=== PATIENT | male | born 1990 | race Caucasian/White ===

== ENCOUNTER 2019-12-08 23:17 | Emergency (ER) | payer OTHER ==
[~2019-12-08] VITALS: Ht 200.7 cm; Wt 124.7 kg
--- OUTSIDE RECORDS SUMMARY | ~2019-12-08 | XMS | Encounter Summary ---
Demographics + + + | Address | [address] | | | [place] [address] | + + + | Home Phone | | + + + | Preferred Language | Unknown | + + + | Marital Status | Single | + + + | Holiness Affiliation | Unknown | + + + | Race | Unknown | + + + | Ethnic Group | Unknown | + + + Author + + + | Author | [facility] | | | and [place] | + + + | Organization | [facility] | | | and [place] | + + + | Address | Unknown | + + + | Phone | Unavailable | + + + Support + + +---------+ + | Name | Relationship | Address | Phone | + + +---------+ + | [place] | ECON | Unknown | | | Corrections | | | | + + +---------+ + Care Team Providers + +------+ + | Care Grails Web Application Developer Name | Role | Phone | + +------+ + | No, Physician | PCP | Unavailable | + +------+ + Reason for Visit + + + | Reason | Comments | + + + | Follow-up | Established patient presents for follow up. | + + + Encounter Details +--------+---------+ + + + | Date | Type | Department | Care Team | Description | +--------+---------+ + + + | 07/05/ | Office | [facility] | Adithya, | Anal stenosis | | 2020 | Visit | GENERAL SURGERY [address] | [address] | (Primary Dx) | | | | [address] | [address] | | | | | [place], [place] | [place] [address] | | | | | [address] | [phone] | | | | | [phone] | | | +--------+---------+ + + + Social History + +-------+ +--------+------+ | Tobacco Use | Types | Packs/Day | Years | Date | | | | | Used | | + +-------+ +--------+------+ | Never Smoker | | | | | + +-------+ +--------+------+ + + + | Sex Assigned at | Date Recorded | | | | + + + | Not on file | | + + + documented as of this encounter Progress Notes Garrison Haji ARNP - 07/05/2019 11:20 AM PSTFormatting of this note might be differen t from the original. Service: Colorectal Surgery Progress Note ID: Zack Wei; DATE OF VISIT: 07/05/2019 History Obtained From: History obtained from chart review and the patient. CHIEF COMPLAINT: Anal stenosis and pain with bowel movement HISTORY OF PRESENT ILLNESS aZck Wei is a very pleasant 28-year-old male patient who is well-known to our servic e. Patient is currently an inmate. He underwent an external hemorrhoidectomy x3 for hemorr hoids back in June [address] Brewster in [place]. Patient then developed significant s carring and anal stenosis. We initially tried Hegar dilators to try and widen the anus landis brittni this was not effective. He then underwent a right lateral island flap with Dr. Fior frye on December 14, 2017. Patient was seen multiple times in postoperative follow-up. The wound healed nicely however he still complaining of pain with bowel movements. He was again suppo sed to follow-up and to discuss doing a flap to the other side however the patient did not r eturn to clinic. Patient presents today again with a chief complaint of anal stenosis and difficulty with a bowel movement. He states that it when he is taking stool softeners and laxatives that he d oes not have too much difficulty having a bowel movement but whenever he stops these he beco mes severely constipated and has extreme difficulty in having a bowel movement. <COMOBIDITIES> REVIEW OF SYSTEMS Review of Systems Constitutional: Negative for chills and fever. Respiratory: Negative for shortness of breath. Cardiovascular: Negative for chest pain. Gastrointestinal: Negative for abdominal pain, blood in stool, constipation, diarrhea, hear tburn, melena, nausea and vomiting. All other systems reviewed and are negative. No past medical history on file. Past Surgical History: Procedure Laterality Date HEMORRHOID SURGERY 06/2016 OTHER SURGICAL HISTORY 12/14/2017 EXAMINATION UNDER ANESTHESIA - Procedure: EXAM UNDER ANESTHESIA; Surgeon: Osei Childress i, MD; Location: [facility] OR; Service: General; Laterality: N/A; Dermal Island flap adv ancement. Social History Socioeconomic History Marital status: Single Spouse name: Not on file Number of children: Not on file Years of education: Not on file Highest education level: Not on file Occupational History Not on file Social Needs Financial resource strain: Not on file Food insecurity: Worry: Not on file Inability: Not on file Transportation needs: Medical: Not on file Non-medical: Not on file Tobacco Use Smoking status: Never Smoker Substance and Sexual Activity Alcohol use: Not on file Drug use: Not on file Sexual activity: Not on file Lifestyle Physical activity: Days per week: Not on file Minutes per session: Not on file Stress: Not on file Relationships Social connections: Talks on phone: Not on file Gets together: Not on file Attends baptism service: Not on file Active member of club or organization: Not on file Attends meetings of clubs or organizations: Not on file Relationship status: Not on file Intimate partner violence: Fear of current or ex partner: Not on file Emotionally abused: Not on file Physically abused: Not on file Forced sexual activity: Not on file Other Topics Concern Not on file Social History Narrative Not on file Current Outpatient Medications: DULoxetine (CYMBALTA) [address] capsule, Take 20 mg by mouth daily., Disp: , Rfl: metroNIDAZOLE (FLAGYL) 500 MG tablet, Take one 500 mg. Tablet by mouth at 7 pm and shahnaz e one 500 mg. Tablet by mouth 9 pm the night prior to your procedure., Disp: 2 tablet, Rfl: 0 neomycin 500 mg tablet, Take two 500 mg tablets by mouth at 7 pm and Take two 500 mg t ablets by mouth at 9 pm the night prior to your surgical procedure., Disp: 4 tablet, Rfl: 0 PEG 3179-MGo-UfTnb-NaCl-NaSulf (PEG-3350/ELECTROLYTES) 236 g SOLR, Please follow your physicians instructions for use the day prior to your surgical procedure., Disp: 4,000 mL, R fl: 0 There were no vitals filed for this visit. PHYSICAL EXAM IMAGING Vital Signs: There were no vitals taken for this visit. Physical Exam Vitals signs and nursing note reviewed. Cardiovascular: Rate and Rhythm: Normal rate. Pulmonary: Effort: Pulmonary effort is normal. Genitourinary: Skin: General: Skin is warm and dry. Psychiatric: Mood and Affect: Mood normal. Behavior: Behavior normal. ASSESSMENT & PLAN 28-year-old male patient status post hemorrhoid surgery who had the unfortunate complicatio n of anal stenosis status post right lateral dermal/island flap, who still has pain with bow el movements. We will schedule the patient for another exam under anesthesia and dermal fla p on the other side. Procedure options, risks, benefits and alternatives reviewed with mylene ent who express(es) understanding. Any and all questions were answered to their satisfactio n. LICHA Lino 11:10 AM; 07/05/2019 documented in th is encounter Plan of Treatment +--------+---------+ + + + | Date | Type | Specialty | Care Team | Description | +--------+---------+ + + + | 12/27/ | Office | General Surgery | Adithya, | | 2019 | Visit | | [address] | | | | | | [address] [facility] [address] | | | | | | [place] [address] | | | | | | [phone] | | | | | | | | +--------+---------+ + + + documented as of this encounter Visit Diagnoses + + | Diagnosis | + + | 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
--- OUTSIDE RECORDS SUMMARY | ~2019-12-08 | XMS | Encounter Summary ---
Demographics + + + | Address | [address] | | | [place] [address] | + + + | Home Phone | | + + + | Preferred Language | Unknown | + + + | Marital Status | Single | + + + | Hoahaoism Affiliation | Unknown | + + + | Race | Unknown | + + + | Ethnic Group | Unknown | + + + Author + + + | Author | [facility] | | | and [place] | + + + | Organization | [facility] | | | and [place] | + + + | Address | Unknown | + + + | Phone | Unavailable | + + + Support + + +---------+ + | Name | Relationship | Address | Phone | + + +---------+ + | [place] | ECON | Unknown | | | Corrections | | | | + + +---------+ + Care Team Providers + +------+ + | Care Vice President Of Product Marketing Name | Role | Phone | + +------+ + | No, Physician | PCP | Unavailable | + +------+ + Encounter Details +--------+ + + + + | Date | Type | Department | Care Team | Description | +--------+ + + + + | 12/13/ | Orders Only | [facility] | Adithya, | | | 2018 | | GENERAL SURGERY [address] | [address] | | | | | [address] | [address] | | | | | [place], [place] | [place] [address] | | | | | [address] | [phone] | | | | | [phone] | | | +--------+ + + + [...] [address] | | | | | | [facility] [place] [address] | | | | | | [phone] | | | | | | | | +--------+---------+ + + + documented as of this encounter Visit Diagnoses Not on filedocumented in this encounter"
--- OUTSIDE RECORDS SUMMARY | ~2019-12-08 | XMS | Clinical Summary ---
Demographics + + + | Address | [address] | | | [place] [address] | + + + | Home Phone | | + + + | Preferred Language | Unknown | + + + | Marital Status | Single | + + + | Islam Affiliation | Unknown | + + + | Race | Unknown | + + + | Ethnic Group | Unknown | + + + Author + + + | Author | [facility] | | | and [place] | + + + | Organization | [facility] | | | and [place] | + + + | Address | Unknown | + + + | Phone | Unavailable | + + + Support + + +---------+ + | Name | Relationship | Address | Phone | + + +---------+ + | [place] | ECON | Unknown | | | Corrections | | | | + + +---------+ + Care Team Providers + +------+ + | Care Spindle Plumber Name | Role | Phone | + +------+ + | No, Physician | PCP | Unavailable | + +------+ + Allergies No Known Allergies Medications + + + +---------+------+------+-------+ | Medication | Sig | Dispensed | Refills | Star | End | Statu | | | | | | t | Date | s | | | | | | Date | | | + + + +---------+------+------+-------+ | ketotifen | 1 drop 2 times | | 0 | | | Activ | | (ZADITOR) 0.025% | daily. | | | | | e | | ophthalmic solution | | | | | | | + + + +---------+------+------+-------+ | Naphazoline HCl | Apply to eye 2 | | 0 | | | Activ | | (NAPHCON OP) | times daily. | | | | | e | + + + +---------+------+------+-------+ | naproxen | Take 500 mg by mouth | | 0 | | | Activ | | (NAPROSYN) 500 mg | Twice daily as | | | | | e | | tablet | needed for Pain. | | | | | | + + + +---------+------+------+-------+ | Polyethylene | by Does not apply | | 0 | | | Activ | | Glycol POWD | route. | | | | | e | + + + +---------+------+------+-------+ | | Take 1 tablet by | 20 | 0 | 07/2 | 08/0 | Activ | | oxyCODONE-acetaminop | mouth every 6 hours | tablet | | 4/20 | 7/20 | e | | hen (PERCOCET) 5-325 | as needed for Pain | | | 20 | 20 | | | mg per tablet | for up to 14 days. | | | | | | + + + +---------+------+------+-------+ Active Problems + + + | Problem | Noted Date | + + + | Anal stenosis | 09/23/2017 | + + + + + | Overview: Added automatically from request for surgery [id number] | + + Encounters +--------+ + + + + | Date | Type | Specialty | Care Team | Description | +--------+ + + + + | 12/07/ | Anesthesia | | Talib Sotelo, | | | 2019 | Event | | TRUST OFFICER | | +--------+ + + + + | 12/07/ | Surgery | | Osei Boyer, | EXAM UNDER | 2019 | | | MD | ANESTHESIA RECTAL; | | | | | | anal flap | +--------+ + + + + | 12/07/ | Hospital | | Osei Boyer, | Anal stenosis | | 2019 | Encounter | | MD | | +--------+ + + + + | 12/05/ | Telephone | General Surgery | Osei Boyer, | Other (returning | | 2019 | | | MD | call ) | +--------+ + + + + | 11/16/ | Preadmit | Pre-Admission | Osei Boyer, | | | 2019 | Visit | Testing | MD | | +--------+ + + + + | 11/02/ | Telephone | General Surgery | Osei Boyer, | Post Op (schedule) | | 2019 | | | MD | | +--------+ + + + + | 10/11/ | Telephone | General Surgery | Osei Boyer, | Other; Procedure | | 2019 | | | MD | () | +--------+ + + + + | 10/03/ | Preadmit | Pre-Admission | Osei Boyer, | | | 2019 | Visit | Testing | MD | | +--------+ + + + + from Last 3 Months Social History + +-------+ +--------+------+ | Tobacco [...] on file | | + + + Last Filed Vital Signs + + + + + | Vital Sign | Reading | Time Taken | Comments | + + + + + | Blood Pressure | 122/60 | 12/08/2019 1:44 PM | | | | | PDT | | + + + + + | Pulse | 61 | 12/08/2019 1:44 PM | | | | | PDT | | + + + + + | Temperature | 36.7 C (98.1 F) | 12/08/2019 1:15 PM | | | | | PDT | | + + + + + | Respiratory Rate | 16 | 12/08/2019 1:15 PM | | | | | PDT | | + + + + + | Oxygen Saturation | 98% | 12/08/2019 1:44 PM | | | | | PDT | | + + + + + | Inhaled Oxygen | - | - | | | Concentration | | | | + + + + + | Weight | 124.7 kg (274 lb | 12/08/2019 9:04 AM | | | | 14.6 oz) | PDT | | + + + + + | Height | 200.7 cm (6' 7") | 12/08/2019 9:04 AM | | | | | PDT | | + + + + + | Body Mass Index | 30.97 | 12/08/2019 9:04 AM | | | | | PDT | | + + + + + Plan of Treatment +--------+---------+ + + + | Date | Type | Specialty | Care Team | Description | +--------+---------+ + + + | 12/27/ | Office | General Surgery | Adithya, | | | 2020 | Visit | | [address] | | | | | | [address] | | | | | | [place] [address] | | | | | | [phone] | | | | | | | | +--------+---------+ + + + + + + + + | Health Maintenance | Due Date | Last | Comments | | | | Done | | + + + + + | Hepatitis C | | | | | Screening | 9 | | | + + + + + | Med Mgmt: BUN | | | | | | 9 | | | + + + + + | Med Mgmt: Cr | | | | | | 9 | | | + + + + + | Medication | | | | | Management | 9 | | | + + + + + | Vaccine: Influenza | | 03/06/20 | | | (#1) | 0 | 19, | | | | | 03/31/20 | | | | | 16 | | + + + + + | Vaccine: | | 01/25/20 | | | Dtap/Tdap/Td (2 - | 8 | 18 | | | Td) | | | | + + + + + Procedures + +--------+ + + + | Procedure Name | Priori | Date/Time | Associated Diagnosis | Comments | | | ty | | | | + +--------+ + + + | ANE AIRWAY NOTE | Routin | 12/08/2019 | | Results for this | | | e | 11:21 AM | | procedure are in the | | | | PDT | | results section. | + +--------+ + + + | CORONAVIRUS | STAT | 12/08/2019 | | Results for this | | (COVID-19) NAAT | | 8:21 AM | | procedure are in the | | | | PDT | | results section. | + +--------+ + + + from Last 3 Months Results Airway (12/08/2019 11:21 AM PDT) + + + | Narrative | Performed At | + + + | Talib Sotelo CRNA 12/08/2019 11:21 AM Anesthesia Airway | | | Placement 12/08/2019 11:00 AM Preprocedure check: patient | | | identified, oxygen, airway assessed, suction, airway equipment | | | checked and patient reassessment prior to induction Rapid Sequence | | | Induction: no Mask ventilation: easy External maneuver: cricoid | | | pressure Successful technique: Mac Laryngoscope blade size: 3 | | | Airway grade: 3 (Only epiglottis seen, no glottis seen) Attempts: 1 | | | Airway type: endotracheal Size: 7.5 Cuffed: cuffed Route, reference | | | point: right side of mouth Tube depth: 23 cm Tube secured with: | | | adhesive tape Tube placement verification: bilateral chest rise, | | | equal bilateral breath sounds and carbon dioxide detection | | | Performing provider: Talib Sotelo CRNA Authorizing provider: | | | Talib Sotelo CRNA Please see intraoperative grid for any | | | additional medication documentation. | | + + + Coronavirus (COVID-19) NAAT (12/08/2019 8:21 AM PDT) + + + + + + | Component | Value | Ref Range | Performed | Pathologist | | | | | At | Signature | + + + + + + | SARS-CoV-2, | NEGATIVEComment: This | NEG | [facility] | | | NAAT | test was developed and | | LABORATORY | | | (COVID-19) | its performance | | | | | | characteristics | | | | | | determined byCepheid. It | | | | | | has not been cleared or | | | | | | approved by the [place] FDA. | | | | | | This test has | | | | | | beenauthorized by FDA | | | | | | under an Emergency Use | | | | | | Authorization (EUA). | | | | | | Clinicians shouldbe | | | | | | advised to consider a | | | | | | patients signs, | | | | | | symptoms, history, and | | | | | | results ofother | | | | | | diagnostic tests when | | | | | | interpreting | | | | | | results.Testing | | | | | | performed at [facility] | | | | | | [address];[place], [place] | | | | | | [address] | | | | + + + + + + + + | Specimen | + + | Tissue - Entire | | nasopharynx (body | | structure) | + + + + + + + | Performing | Address | City/State/Zipcode | Phone Number | | Organization | | | | + + + + + | [facility] | [address] | [place] [address] | [phone] | + + + + + from Last 3 Months Insurance + +--------+ +--------+-------+---------+--------+ | Payer | Benefi | Subscriber | Effect | Phone | Address | Type | | | t Plan | ID | michell | | | | | | / | | Dates | | | | | | Group | | | | | | + +--------+ +--------+-------+---------+--------+ | DEPARTMENT OF | CORRCT | [id number] | 05/17/19 | | | Indemn | | CORRECTIONS | NL | | 16-Pre | | | ity | | | HLTH | | sent | | | | | | FIRST | | | | | | | | [place] | | | | | | + +--------+ +--------+-------+---------+--------+ + +--------+ +--------+ + + | Guarantor Name | Accoun | Relation to | Date | Phone | Billing Address | | | t Type | Patient | of | | | | | | | | | | + +--------+ +--------+ + + | State,[place] | Corpor | Other | [birth year] | | [address] | | [employer] | ate | | 1903 | [phone] | [address] [place] | | | | | | 0 (Home) | [address] | + +--------+ +--------+ + + | Zack Wei | Person | Self | [birth year] | [address] | | | al/Fam | | 1991 | [phone] | [address] [place] | | | gael | | | 1 (Home) | [address] | + +--------+ +--------+ + + Advance Directives + + + + + | Type | Date Recorded | Patient | Explanation | | | | Planning Assistant | | + + + + + | Power of | | | | | Assembly Machine Tender | | | | + + + + + | Advance | 11/13/2019 4:22 | | | | Directive | PM | | | + + + + + + + + + + | Code Status | Date | Date | Comments | | | Activated | Inactivated | | + + + + + | Full Code | 12/08/2019 | 12/08/2019 | | | | 1:15 PM | 4:08 PM | | + + + + +
--- OUTSIDE RECORDS SUMMARY | ~2019-12-08 | XMS | Encounter Summary ---
Demographics + + + | Address | [address] | | | [place] [address] | + + + | Home Phone | | + + + | Preferred Language | Unknown | + + + | Marital Status | Single | + + + | Latter Day Affiliation | Unknown | + + + | Race | Unknown | + + + | Ethnic Group | Unknown | + + + Author + + + | Author | [facility] | | | and [place] | + + + | Organization | [facility] | | | and [place] | + + + | Address | Unknown | + + + | Phone | Unavailable | + + + Support + + +---------+ + | Name | Relationship | Address | Phone | + + +---------+ + | Anthony | ECON | Unknown | | | Corrections | | | | + + +---------+ + Care Team Providers + +------+ + | Care Slot Machine Floor Person Name | Role | Phone | + [...] + + | 10/11/ | Telephone | [facility] | Osei Boyer, | Other; Procedure | | 2020 | | GENERAL SURGERY [address] | MD [address] | (sooner date) | | | | [address] | [address] | | | | | [place], [place] | [place] [address] | | | | | [address] | [phone] | | | | | [phone] | | | +--------+ + + + [...] Miscellaneous Notes Telephone Encounter - Samira Begum Drying Rack Changer - 10/13/2019 1:07 PM PDTAttem pted to return the call of Nancy at [facility]. No answer. LVM stating I am ret [...] if ther e is a sooner appointment? [phone] elephone Encounter - Samira Dominguez res Drying Rack Changer - 10/12/2019 10:34 AM PDTSpoke with Ashlyn [...] his surgery tomorrow 10/12 morning. Please contact [phone] If this is a symptom based call, was patient offered triage? Not Applicable If this is a symptom based call and you were unable to immediately transfer the call to a xochilt gore sales representative supervisor was caller made aware that if at [...] [address] | | | | | | [place] [address] | | | | | | [phone] | | | | | | | | +--------+---------+ + + + documented as of this encounter Visit Diagnoses Not on filedocumented in this encounter"
--- OUTSIDE RECORDS SUMMARY | ~2019-12-08 | XMS | Encounter Summary ---
Demographics + + + | Address | [address] | | | [place] [address] | + + + | Home Phone | | + + + | Preferred Language | Unknown | + + + | Marital Status | Single | + + + | Baptist Affiliation | Unknown | + + + | Race | Unknown | + + + | Ethnic Group | Unknown | + + + Author + + + | Author | [facility] | | | and [place] | + + + | Organization | [facility] | | | and [place] | + + + | Address | Unknown | + + + | Phone | Unavailable | + + + Support + + +---------+ + | Name | Relationship | Address | Phone | + + +---------+ + | [place] | ECON | Unknown | | | Corrections | | | | + + +---------+ + Care Team Providers + +------+ + | Care Anatomical Embalmer Name | Role | Phone | + +------+ + | No, Physician | PCP | Unavailable | + +------+ + Reason for Visit +--------+--------+ + | Reason | Onset | Comments | | | Date | | +--------+--------+ + | Other | 12/05/ | returning call | | | 2020 | | +--------+--------+ + Encounter Details +--------+ + + + + | Date | Type | Department | Care Team | Description | +--------+ + + + + | 12/05/ | Telephone | [facility] | Osei Boyer, | Other (returning | | 2019 | | GENERAL SURGERY [address] | MD [address] | call ) | | | | [address] | [address] | | | | | [place], [place] | [place] [address] | | | | | [address] | [phone] | | | | | [phone] | | | +--------+ + + + [...] this encounter Miscellaneous Notes Telephone Encounter - Marcelle Shelton, Towerman - 12/07/2019 4:17 PM PDTCalled an d spoke with Ashlyn at [facility]. And confirmed that patient will be there for surg skye tomorrow with Osei Boyer MD and review prep instructions of 2 fleets.Electronical ly signed by Marcelle Shelton Towerman at 12/07/2019 4:18 PM PDTTelephone Encounter - Marcelle Shelton, Towerman - 12/06/2019 4:39 PM PDTAttempted to contact Ashlyn, ronni murillo LVM for a return call in regards to patient prep for surgery on 12/08/19 with Osei Boyer MD. 4:3 9 PM PDTTelephone Encounter - Betsey Win - 12/06/2019 4:18 PM PDTKim- Addis, i s calling regarding Other (returning call ) and would like a call back. Additional Call Details: Returning call from Marcelle regarding patients upcoming surgery on 12.08.19. Ashlyn can be reached at [phone]. If this is a symptom based call, was patient offered triage? Not Applicable If this is a symptom based call and you were unable to immediately transfer the call to a xochilt gore director of alumni relations was caller made aware that if at any time he feels it is an emergency they siola uld call 911 or go to the [...] | | | | | [place] [address] | | | | | | [phone] | | | | | | | | +--------+---------+ + + + documented as of this encounter Visit Diagnoses Not on filedocumented in this encounter"
--- OUTSIDE RECORDS SUMMARY | ~2019-12-08 | XMS | Encounter Summary ---
Demographics + + + | Address | [address] | | | [place] [address] | + + + | Home Phone | | + + + | Preferred Language | Unknown | + + + | Marital Status | Single | + + + | Latter-Day Affiliation | Unknown | + + + | Race | Unknown | + + + | Ethnic Group | Unknown | + + + Author + + + | Author | [facility] | | | and [place] | + + + | Organization | [facility] | | | and [place] | + + + | Address | Unknown | + + + | Phone | Unavailable | + + + Support + + +---------+ + | Name | Relationship | Address | Phone | + + +---------+ + | [place] | ECON | Unknown | | | Corrections | | | | + + +---------+ + Care Team Providers + +------+ + | Care Grab Setter Name | Role | Phone | + +------+ + | No, Physician | PCP | Unavailable | + +------+ + Reason for Visit + +--------+ + | Reason | Onset | Comments | | | Date | | + +--------+ + | Follow-up | 05/19/ | | | | 2020 | | + +--------+ + Encounter Details +--------+ + + + + | Date | Type | Department | Care Team | Description | +--------+ + + + + | 05/19/ | Telephone | [facility] | Osei Boyer, | Follow-up | | 2019 | | GENERAL SURGERY [address] | MD [address] | | | | | [address] | [address] | | | | | [place], [place] | [place] [address] | | | | | [address] | [phone] | | | | | [phone] | | | +--------+ + + + [...] this encounter Miscellaneous Notes Telephone Encounter - Manuela Blackburn I - 06/15/2019 8:53 AM PSTKim- [place], is calling again for Follow-up and would like a call back. Additional Call Details: Reschedule 06/20 appointment due to transportation conflict. Call back at: [phone] elephone Encounter - Manuela Bates Tabitha - 05/26/2019 11:46 AM PSTKim, is calling again for Follow-up and would like a call back. Additional Call Details: Waiting on a call back. Please return call to: [phone] elephone Encounter - Nancy Starkey - 05/19/2019 11:11 AM PSTLeft voicemail for Ashlyn to call back and schedule f ollow up for inmate to see Ralph Haji.Electronically signed by Nancy Yan at 05/19 11:11 AM PSTTelephone Encounter - Robert Quinones - 05/19/2019 10:03 AM PSTKim, is calling regarding Follow-up and would like a call back. Additional Call Details: Ashlyn, from [facility], Calling to [facility] e Follow Up Appointment. Ashlyn can be reached at [phone] If this is a symptom based call, was patient offered triage? Not Applicable If this is a symptom based call and you were unable to immediately transfer the call to a xochilt gore [employer] professor was caller made aware that if at [...] | | | | | [place] [address] | | | | | | [phone] | | | | | | | | +--------+---------+ + + + documented as of this encounter Visit Diagnoses Not on filedocumented in this encounter"
--- OUTSIDE RECORDS SUMMARY | ~2019-12-08 | XMS | Encounter Summary ---
Demographics + + + | Address | [address] | | | [place] [address] | + + + | Home Phone [...] + | Author | [facility] | | | and [place] | + + + | Organization | [facility] | | | and [place] | + + + | Address | Unknown | + + + | Phone | Unavailable | + + + Support + + +---------+ + | Name | Relationship | Address | Phone | + + +---------+ + | [place] | ECON | Unknown | | | Corrections | | | | + + +---------+ + Care Team Providers + +------+ + | Care Cdl Team Truck Driver Name | Role | Phone | + [...] + + | 11/02/ | Telephone | [facility] | Osei Boyer, | Post Op (schedule) | | 2020 | | GENERAL SURGERY [address] | MD [address] | | | | | [address] | [address] | | | | | [place], [place] | [place] [address] | | | | | [address] | [phone] | | | | | [phone] | | | +--------+ + + + [...] back. Additional Call Details: Call back at: [phone] If this is a symptom based call, was patient offered triage? Not Applicable If this is a symptom based call and you were unable to immediately transfer the call to a p sofía special certificate dictator was caller made aware that if at [...] [address] | | | | | | [place] [address] | | | | | | [phone] | | | | | | | | +--------+---------+ + + + documented as of this encounter Visit Diagnoses Not on filedocumented in this encounter"
--- OUTSIDE RECORDS SUMMARY | ~2019-12-08 | XMS | Encounter Summary ---
Demographics + + + | Address | [address] | | | [place] [address] | + + + | Home Phone | | + + + | Preferred Language | Unknown | + + + | Marital Status | Single | + + + | Christian Affiliation | Unknown | + + + | Race | Unknown | + + + | Ethnic Group | Unknown | + + + Author + + + | Author | [facility] | | | and [place] | + + + | Organization | [facility] | | | and [place] | + + + | Address | Unknown | + + + | Phone | Unavailable | + + + Support + + +---------+ + | Name | Relationship | Address | Phone | + + +---------+ + | [place] | ECON | Unknown | | | Corrections | | | | + + +---------+ + Care Team Providers + +------+ + | Care Turret Punch Press Operator Name | Role | Phone | + [...] [place] | | | | | | [address] | | | | | | [phone] | | | +--------+ + + + [...] | | | | | [place] [address] | | | | | | [phone] | | | | | | | | +--------+---------+ + + + documented as of this encounter Visit Diagnoses Not on filedocumented in this encounter"
--- OUTSIDE RECORDS SUMMARY | ~2019-12-08 | XMS | Encounter Summary ---
Demographics + + + | Address | [address] | | | [place] [address] | + + + | Home Phone | | + + + | Preferred Language | Unknown | + + + | Marital Status | Single | + + + | Caodaism Affiliation | Unknown | + + + | Race | Unknown | + + + | Ethnic Group | Unknown | + + + Author + + + | Author | [facility] | | | and [place] | + + + | Organization | [facility] | | | and [place] | + + + | Address | Unknown | + + + | Phone | Unavailable | + + + Support + + +---------+ + | Name | Relationship | Address | Phone | + + +---------+ + | [place] | ECON | Unknown | | | Corrections | | | | + + +---------+ + Care Team Providers + +------+ + | Care Social Services Counselor Name | Role | Phone | + +------+ + | No, Physician | PCP | Unavailable | + +------+ + Encounter Details +--------+ + + + + | Date | Type | Department | Care Team | Description | +--------+ + + + + | 10/03/ | Preadmit | [facility] | Osei Boyer, | | | 2019 | Visit | [facility] | [address] | | | | | CLINIC [address] | | | | | [address] [place], [place] | [place] [address] | | | | | [address] | [phone] | | | | | [phone] | | | +--------+ + + + [...] | | | | | [place] [address] | | | | | | [phone] | | | | | | | | +--------+---------+ + + + documented as of this encounter Visit Diagnoses Not on filedocumented in this encounter"
--- OUTSIDE RECORDS SUMMARY | ~2019-12-08 | XMS | Encounter Summary ---
Demographics + + + | Address | [address] | | | [place] [address] | + + + | Home Phone | | + + + | Preferred Language | Unknown | + + + | Marital Status | Single | + + + | Mu-Ism Affiliation | Unknown | + + + | Race | Unknown | + + + | Ethnic Group | Unknown | + + + Author + + + | Author | [facility] | | | and [place] | + + + | Organization | [facility] | | | and [place] | + + + | Address | Unknown | + + + | Phone | Unavailable | + + + Support + + +---------+ + | Name | Relationship | Address | Phone | + + +---------+ + | [place] | ECON | Unknown | | | Corrections | | | | + + +---------+ + Care Team Providers + +------+ + | Care Technical Implementation Lead Name | Role | Phone | + [...] + + | 12/07/ | Hospital | [facility] | Osei Boyer, | Anal stenosis | | 2020 | Encounter | [facility] | MD [address] | | | | | [address] | [address] | | | | | [address] | [place] [address] | | | | | [place], [place] | [phone] | | | | | [address] | | | | | | [phone] | | | +--------+ + + + [...] Other supplements that can be taken include Staff [employer] Information Center Officer, Benefiber, Konsyl, or Citrucel. Continue to take [...] call us immediately or go to the [facility] Emergency R oom. After Your Surgery [...] strain that is spread mainly from pers cs-jw-qosbxs through respiratory droplets when an infected person [...] are not available, use an alcohol-based hand grid molder with at least 60 % alcohol covering [...] and need to call 911, notify the pick up operator that you have or think you [...] COVID-19 symptoms, residents in nursing facilities or snf communities or home health, or those who [...] or preparing your food. ? Use hand grid molder if soap and water are not available. [...] with soap and water or in the communications agent/washer. ? Call ahead before visiting your doctor. [...] proper disposal of unused medications, please visit: http://www.takeOptiMine Softwareyourmeds.org/, https://apps.Mediasmart.[employer].gov/pubdispsea [facility]/spring/main?execution=e1s3 ? Activities of daily living (ADL) are routine activities people do every day without matthew tance. Non-pharmacological interventions can be useful and incorporated to help with activit ies of daily living. These include, but are not limited to: Repositioning, cold/warm bruce ses, massage, decreasing environmental stimulation (decrease lighting, decrease noise), musi c, aromatherapy. FEBRUARY 2018 | [facility] Pub [phone] Location Address Phone # Take Back Hours Accepts Does NOT Accept [place] [employer] [address] [place] [address] [phone] Lobby hours: M-F: 8am-5pm Sat-Sun: See their Facebook page for dates (every few weeks) - Pills: tablets, capsules (in cluding controlled substances) - Liquids - Topical lotions, gels, creams, ointments - Sharps, syringes (including insulin) - Inhalers [place] [employer] [facility] [address] [place] [phone] Lobby hours: M-F: 8am-12pm, 1pm-5pm (closed 12-1pm) Sat-Sun: CLOSED - Pills: tablets, capsules (including controlled substances) - Liquids - Topical lotions, gels, creams, ointments - Sharps, syringes (including insulin) - Inhalers [place] [employer] [address] [place] [address] [phone] Lobby hours: M-F: 8:30am-4:30pm Sat-Sun: CLOSED - Pills: tablets, capsules (including controlled substances) - Patches - Liquids - Topical lotions, gels, creams, ointments - Sharps, syringes (including insulin) - Inhalers [place] [employer] [address] [place], [place] [id number] [phone] Lobby hours: M-F: 8am-5pm Sat-Sun: CLOSED - Pills: tablets, capsules (including controlled substances) - Liquids - Topical lotions, gels, creams, ointments - Sharps, syringes (including insulin) - Inhalers [facility] ([id number]) [address] [place], [place] [id number] [phone] Pharmacy hours: M-F: 9am-9pm Sat: 8am-9pm Sun: 9am-9pm - Pills: tablets, capsules (including controlled substances) - Liquids - Topical lotions, gels, creams, ointments - Sharps, syringes (including insulin) - Inhalers [employer] (local branch of [employer]) [address] [place], [place] [id number] [phone] Call to schedule vegetable picker; only for current residential customers - Sharps, [...] in June [address] Brewster in [place]. Patient then developed significant s carring and [...] ANESTHESIA; Surgeon: Osei Childress i, MD; Location: [facility] MA[facility] OR; Service: General; Laterality: N/A; Dermal [...] Osei Boyer MD - 12/08/2019 12:29 PM [facility] Service: Colon & Rectal Surgery Operative Note Pre-operative Diagnosis: Anal stenosis, secondary to a hemorrhoidectomy. S/P right lateral Island flap anoplasty. Patient wishes to have a larger orifice for better quality of life. Post-operative Diagnosis: Same Procedure(s): Left lateral island flap anoplasty and flexible sigmoidoscopy Surgeon: Osei Boyer MD Electrical Superintendent(s): none Anesthesia: General endotrachial anesthesia and Local [...] well. Condition: Stable Osei Boyer MD 12/08/2019 enn [facility] Not e - Kellie Ayala RN - 07/14/2019 10:32 AM PSTReceived MARS and allergies via fax. Bettina davis in [facility]. documented in this encounter Plan of Treatment +--------+---------+ + + + | Date | Type | Specialty | Care Team | Description | +--------+---------+ + + + | 12/27/ | Office | General Surgery | Adithya, | | | 2019 | Visit | | [address] | | | | | | [address] | | | | | | [place] [address] | | | | | | [phone] | | | | | | | [...] | | | | | performed at [facility];[address] | | | | | | [address];[place] | | | | | | [address] | | | | + + + + + + + + | Specimen | + + | Tissue - Entire | | nasopharynx (body | | structure) | + + + + + + + | Performing | Address | City/State/Zipcode | Phone Number | | Organization | | | | + + + + + | [facility] | [address] | [place] [address] | [phone] | + + + + + documented [...] | | | | | | longer, rxofzm-bhl-oakft use of | | | | | [...] | | | | | | | [id number]-luk-kxslj use of at least | | | [...]
--- OUTSIDE RECORDS SUMMARY | ~2019-12-08 | XMS | Encounter Summary ---
Demographics + + + | Address | [address] | | | [place] [address] | + + + | Home Phone | | + + + | Preferred Language | Unknown | + + + | Marital Status | Single | + + + | Yazidism Affiliation | Unknown | + + + | Race | Unknown | + + + | Ethnic Group | Unknown | + + + Author + + + | Author | [facility] | | | and [place] | + + + | Organization | [facility] | | | and [place] | + + + | Address | Unknown | + + + | Phone | Unavailable | + + + Support + + +---------+ + | Name | Relationship | Address | Phone | + + +---------+ + | [place] | ECON | Unknown | | | Corrections | | | | + + +---------+ + Care Team Providers + +------+ + | Care Family Resource Coordinator Name | Role | Phone | + +------+ + | No, Physician | PCP | Unavailable | + +------+ + Encounter Details +--------+ + + + + | Date | Type | Department | Care Team | Description | +--------+ + + + + | 12/07/ | Anesthesia | [facility] | Talib Sotelo, | | | 2020 | [facility] | SOLDERER [address] | | | | | OPER[address] | [place] [address] | | | | | [address] | [phone] | | | | | [place], [place] | | | | | | [address] | | | | | | [phone] | | | +--------+ + + + + Anesthesia Record + + + + + | Procedure Name | Responsible | Anesthesia Start | Anesthesia Stop Time | | | Anesthesiologist | Time | | + + + + + | EXAM UNDER | Talib Sotelo, | 12/08/19 1052 | 12/08/19 1237 | | ANESTHESIA RECTAL; | SOLDERER | | | | anal flap (N/A Anus) | | | | + + + + + +----+---+ + + | Da | T | Event | Comment | | te | i | | | | | m | | | | | e | | | +----+---+ + + | 07 | 0 | | | | /2 | 9 | | | | 4/ | 3 | | | | 20 | 1 | | | | 20 | | | | +----+---+ + + | | 1 | An Start | Reassessment prior to anesthesia induction/procedure. | | | 0 | | | | | 5 | | | | | 2 | | | +----+---+ + + | | 1 | An | | | | 0 | Induction | | | | 5 | | | | | 8 | | | +----+---+ + + | | 1 | An | | | | 1 | Intubation | | | | 0 | | | | | 0 | | | +----+---+ + + | | 1 | Anesthesia | | | | 1 | Ready | | | | 0 | | | | | 1 | | | +----+---+ + + | | 1 | Antibiotic | | | | 1 | Given | | | | 1 | | | | | 3 | | | +----+---+ + + | | 1 | [place] | | | | 1 | 43-degrees | | | | 2 | | | | | 3 | | | +----+---+ + + | | 1 | First | | | | 1 | Inc/Proc St | | | | 2 | | | | | 5 | | | +----+---+ + + | | 1 | Extubation/ | | | | 2 | Airway LDA | | | | 2 | Removal | | | | 6 | | | +----+---+ + + | | 1 | an stop | | | | 2 | data | | | | 3 | | | | | 0 | | | +----+---+ + + | | 1 | An Stop | Patient handed off to recovery nurse. | | | 3 | | | | | 7 | | | +----+---+ + + +------+ | Meds | +------+ + +---------+ | Name | Total | + +---------+ | fentaNYL | 100 mcg | + +---------+ | lidocaine 2% | 100 mg | + +---------+ | propofol | 200 mg | + +---------+ | rocuronium | 40 mg | + +---------+ | dexamethasone | 8 mg | + +---------+ | ondansetron | 4 mg | + +---------+ | neostigmine | 3 mg | + +---------+ | glycopyrrolate | 0.4 mg | + +---------+ | ceFAZolin in dextrose (ANCEF) | 2 g | | IVPB 2 g | | + +---------+ | metroNIDAZOLE in saline (FLAGYL) | 500 mg | | IVPB 500 mg | | + +---------+ | balanced electrolytes in water | 500 mL | | (PLASMALYTE-148/NORMOSOL-R) | | | infusion | | + +---------+ + + | Name | + + | N2O Flow Rate (L/Min) | + + | O2 Flow Rate (L/Min) | + + | Insp O2 | + + | Exp N2O | + + | Exp SEV | + + | Air Flow Rate (L/Min) | + + + + | No blood administrations on file. | + + +--------+ + + + | Type | Details | Placement | Removal | +--------+ + + + | Wound | 12/08/19; 823; Incision; | 12/08/19823 by | 12/08/19 1346 by | | | Bilateral; anus; 12/08/19; 1346 | Cinthya Pritchard RN | Alexandra Mccormick, | | | | | RN | +--------+ + + + | Periph | 12/08/19; 12; Right; Hand; 20 | 12/08/19911 by | 12/08/19 1347 by | | kierral | gauge; 12/08/19; 1347 | Barney Kitchen RN | Alexandra Mccormick, | | IV | | | RN | +--------+ + + + | Airway | Placement Date: 12/08/19; | 12/08/19 1100 by | 12/08/19 1226 by | | | Placement Time: 1100 (created via | Talib Sotelo, | Talib Sotelo, | | | procedure documentation); Mask | SOLDERER | SOLDERER | | | Ventilation: EZ; Airway Grade: 3; | | | | | External Maneuvers: CP; | | | | | Successful Technique: Mac; | | | | | Laryngoscope Blade Size: 3; | | | | | Attempts: 1; Airway Type: | | | | | endotracheal; Size: 7.5; Airway | | | | | Tube Secured At: 23; Placement | | | | | Check: exhaled CO2 detection | | | | | device, bilateral chest rise, | | | | | breath sounds equal bilaterally; | | | | | Removal Date: 12/08/19; Removal | | | | | Time: 1226 | | | +--------+ + + + documented in this encounter Social History + +-------+ +--------+------+ | Tobacco [...] + + documented as of this encounter OR Notes Anesthesia Postprocedure Evaluation - Talib Sotelo CRNA - 12/08/2019 12:38 PM PDTForma tting of this note might be different from the original. ANESTHESIA POSTANESTHESIA EVALUATION Zack Wei 29 y.o. male 1990 [id number] Procedure(s) EXAM UNDER ANESTHESIA RECTAL; anal flap (N/A Anus) SIGMOIDOSCOPY FLEXIBLE (N/A Anus) Cooperates? Yes Mental Status Performs simple tasks. Respiratory Satisfactory - Airway patent (self maintained). Cardiovascular Satisfactory - Blood pressure and heart rate acceptable Temperature Satisfactory Pain Satisfactory N/V Control Satisfactory Hydration Satisfactory - No signs of dehydration Adverse Events ADVERSE EVENTS: No adverse events Vitals Value Taken Time Temp 36.2 C (97.2 F) 12/08/19 1231 Pulse 77 12/08/19 1237 Resp 20 12/08/19 1237 BP 105/58 12/08/19 1235 Arterial Line BP Arterial Line BP 2 SpO2 95 % 12/08/19 1237 Vitals shown include unvalidated device data. Electronically signed by Talib Sotelo CRNA 12/08/2019 12:38 PM PDT [facility] Talib Sotelo CRNA at 020 12:38 PM PDTAnesthesia Procedure Notes - Talib Sotelo CRNA - 12/08/2019 11:21 AM PD TAssociated Order(s): AirwayAnesthesia Airway Placement 12/08/2019 11:00 AM Preprocedure check: patient identified, oxygen, airway assessed, suction, airway equipment checked and patient reassessment prior to induction Rapid Sequence Induction: no Mask ventilation: easy External maneuver: cricoid pressure Successful technique: Mac Laryngoscope blade size: 3 Airway grade: 3 (Only epiglottis seen, no glottis seen) Attempts: 1 Airway type: endotracheal Size: 7.5 Cuffed: cuffed Route, reference point: right side of mouth Tube depth: 23 cm Tube secured with: adhesive tape Tube placement verification: bilateral chest rise, equal bilateral breath sounds and carbon dioxide detection Performing provider: Talib Sotelo CRNA Authorizing provider: Talib Sotelo CRNA Please see intraoperative grid for any additional medication documentation. nesthesia Preproc edure Evaluation - Talib Sotelo CRNA - 12/08/2019 9:30 AM PDTFormatting of this note m ight be different from the original. ANESTHESIA PREANESTHESIA EVALUATION Zack Wei 29 y.o. male 1990 [id number] Procedure(s): EXAM UNDER ANESTHESIA RECTAL; dermal flap (N/A Anus) Medical,anesthesia, drug, allergy histories reviewed, NPO status verified. Labs reviewed. Review of Systems / Med History Anesthesia History No anesthesia complications except where noted below. Family Anesthesia History Family Anesthesia Negative except where noted below. Cardiovascular Negative except where noted below. Exercise tolerance >4 METS. Pulmonary Negative except where noted below. Gastrointestinal/Hepatic Negative except where noted below. Renal Negative except where noted below. Endocrine (+) obesity: BMI (30-39) Hematology/Other Negative except where noted below. Cancer Negative except where noted below. Neuromuscular Negative except where noted below. Psychology Negative except where noted below. Physical Exam Airway MP II, TM >3 FB, Mouth opening >2 FB. Neck: limited ROM, extends >30 degrees. Jaw prot rusion normal. Dental grossly normal except where noted below. (+) dentures-upper (Partial plate). CV Rhythm regular. Rate normal. Pulm Clear to auscultation bilaterally. Neuro grossly normal. Anesthesia Plan ASA: 2 Type: General. NPO>ASA standards. mets > 4. Labs reviewed & WNL except as o/w noted. Induction: Intravenous. Potential problems: None anticipated. Monitors: Standard ASA monitors. Consent statement: Anesthetic plan, alternatives, risks and benefits discussed with patient. , discussed risks to teeth, nausea, perioperative CV events, respiratory events, sore throat, stroke Blood transfusion concerns: None. Consenting person understands and agrees to proceed. Electronically Signed by: Talib Sotelo CRNA ESig date/time: 12/08/2019 9:25 AM PDT documented in this encounter Miscellaneous Notes Anesthesia Post-op Handoff - Talib Sotelo CRNA - 12/08/2019 12:37 PM PDT ANESTHESIA HANDOFF NOTE Zack Wei 29 y.o. male 1990 [id number] EXAM UNDER ANESTHESIA RECTAL; anal flap (N/A Anus) SIGMOIDOSCOPY FLEXIBLE (N/A Anus) HANDOFF NOTE Handoff Protocol Used: post-procedure handoff checklist completed The following were completed during the transfer of care: 1. Identification of patient 2. Identification of responsible practitioner (primary service) 3. Discussion of pertinent medical history 4. Discussion of the surgical/procedure course (procedure, reason for surgery, procedure pe rformed) 5. Intraoperative anesthetic management and issues/concerns 6. Expectations/plans for the early post-procedure period 7. Opportunity for questions and acknowledgement of understanding of report from receiving team Patient Location: Phase I Condition: alert Airway/O2: face mask with O2 The significant anesthesia concerns and VS in Epic were reviewed with the receiving team. Talib Soetlo CRNA 12/08/2019 12:37 PM PDT [facility] by Talib Sotelo CRNA at 020 12:37 PM PDTdocumented in this encounter Plan of Treatment +--------+---------+ + + + | Date | Type | Specialty | Care Team | Description | +--------+---------+ + + + | 12/27/ | Office | General Surgery | Adithya, | | | 2019 | Visit | | [address] | | | | | | [address] | | | | | | [facility] [address] | | | | | | [phone] | | | | | | | [...] + + documented in this encounter Results Airway (12/08/2019 11:21 AM PDT) + [...] medication documentation. | | + + + documented in this encounter Visit Diagnoses Not on filedocumented in this encounter Administered Medications + + + +------+------+------+ | Medication Order | MAR | Action | Dose | Rate | Site | | | Action | Date | | | | + + + +------+------+------+ | balanced electrolytes in water | Continue | 12/08/19 | | | | | (PLASMALYTE-148/NORMOSOL-R) | d by | 20 10:52 | | | | | infusion at 100 mL/hr, | Anesthes | AM PDT | | | | | Intravenous, CONTINUOUS, Starting | ia | | | | | | 12/08/19 at 0930, Intra-op | | | | | | + + + +------+------+------+ +---------+ +---+-------+---+ | New Bag | 12/08/19 | | 100 | | | | 20 9:13 | | mL/hr | | | | AM PDT | | | | +---------+ +---+-------+---+ +---+---+ | | | +---+---+ + +-------+ +-----+---+---+ | ceFAZolin in dextrose (ANCEF) | Given | 12/08/19 | 2 g | | | | IVPB 2 g 2 g, Intravenous, | | 20 11:13 | | | | | Administer over 30 Minutes, Prior | | AM PDT | | | | | to Incision, Starting Fri | | | | | | | 12/08/19 at 0912, For 1 dose, Keep | | | | | | | in refrigerator., Pre-op, | | | | | | | Indications: Surgical Prophylaxis | | | | | | + +-------+ +-----+---+---+ +---+---+ | | | +---+---+ + +-------+ +------+---+---+ | dexamethasone (DECADRON) 4 | Given | 07/24/20 | 8 mg | | | | mg/mL injection Intravenous, | | 20 11:08 | | | | | PRN, Starting 12/08/19 at | | AM PDT | | | | | 1108, Anesthesia Intra-op | | | | | | + +-------+ +------+---+---+ +---+---+ | | | +---+---+ + +-------+ +---------+---+---+ | fentaNYL (PF) injection | Given | 12/08/19 | 100 mcg | | | | Intravenous, PRN, Starting Wed | | 20 10:58 | | | | | 12/08/19 at 1058, Anesthesia | | AM PDT | | | | | Intra-op | | | | | | + +-------+ +---------+---+---+ +---+---+ | | | +---+---+ + +-------+ +--------+---+---+ | glycopyrrolate (ROBABIGAILUL) | Given | 12/08/19 | 0.4 mg | | | | injection Intravenous, PRN, | | 20 12:13 | | | | | Starting 12/08/19 at 1213, | | PM PDT | | | | | Anesthesia Intra-op | | | | | | + +-------+ +--------+---+---+ +---+---+ | | | +---+---+ + +-------+ +--------+---+---+ | lidocaine (PF) 2% injection | Given | 12/08/19 | 100 mg | | | | Intravenous, PRN, Starting Fri | | 20 10:58 | | | | | 12/08/19 at 1058, Anesthesia | | AM PDT | | | | | Intra-op | | | | | | + +-------+ +--------+---+---+ +---+---+ | | | +---+---+ + +-------+ +--------+---+---+ | metroNIDAZOLE in saline | Given | 12/08/19 | 500 mg | | | | (FLAGYL) IVPB 500 mg 500 mg, | | 20 11:13 | | | | | Intravenous, Administer over 1 | | AM PDT | | | | | Hours, Prior to Incision, | | | | | | | Starting Wed12/08/19 at 0912, For | | | | | | | 1 dose, Do not refrigerate., | | | | | | | Pre-op, Indications: Surgical | | | | | | | Prophylaxis | | | | | | + +-------+ +--------+---+---+ +---+---+ | | | +---+---+ + +-------+ +------+---+---+ | neostigmine (BLOXIVERZ) 1 mg/mL | Given | 12/08/19 | 3 mg | | | | injection Intravenous, PRN, | | 20 12:13 | | | | | Starting 12/08/19 at 1213, | | PM PDT | | | | | Anesthesia Intra-op | | | | | | + +-------+ +------+---+---+ +---+---+ | | | +---+---+ + +-------+ +------+---+---+ | ondansetron (ZOFRAN) injection | Given | 12/08/19 | 4 mg | | | | Intravenous, PRN, Starting Fri | | 20 11:21 | | | | | 12/08/19 at 1121, Anesthesia | | AM PDT | | | | | Intra-op | | | | | | + +-------+ +------+---+---+ +---+---+ | | | +---+---+ + +-------+ +--------+---+---+ | propofol (DIPRIVAN) injection | Given | 12/08/19 | 200 mg | | | | Intravenous, PRN, Starting Fri | | 20 10:58 | | | | | 12/08/19 at 1058, Anesthesia | | AM PDT | | | | | Intra-op | | | | | | + +-------+ +--------+---+---+ +---+---+ | | | +---+---+ + +-------+ +-------+---+---+ | rocuronium (ZEMURON) injection | Given | 12/08/19 | 40 mg | | | | Intravenous, PRN, Starting Fri | | 20 10:58 | | | | | 12/08/19 at 1058, Anesthesia | | AM PDT | | | | | Intra-op | | | | | | + +-------+ +-------+---+---+ +---+---+ | | | +---+---+ documented in this encounter"
--- OUTSIDE RECORDS SUMMARY | ~2019-12-08 | XMS | Encounter Summary ---
Demographics + + + | Address | [address] | | | [place] [address] | + + + | Home Phone | | + + + | Preferred Language | Unknown | + + + | Marital Status | Single | + + + | Pentecostal Affiliation | Unknown | + + + | Race | Unknown | + + + | Ethnic Group | Unknown | + + + Author + + + | Author | [facility] | | | and [place] | + + + | Organization | [facility] | | | and [place] | + + + | Address | Unknown | + + + | Phone | Unavailable | + + + Support + + +---------+ + | Name | Relationship | Address | Phone | + + +---------+ + | Alva | ECON | Unknown | | | Corrections | | | | + + +---------+ + Care Team Providers + +------+ + | Care Clay Processing Factory Worker Name | Role | Phone | + +------+ + PCP | Unavailable | + +------+ + Encounter Details +--------+ + + + + | Date | Type | Department | Care Team | Description | +--------+ + + + + | 12/14/ | Hospital | [facility] | Osei Boyer, | Anal stenosis | | 2018 | Encounter | [facility] | [address] | | | | | [address] | [address] | | | | | [place], [place] | [place] [address] | | | | | [address] | [phone] | | | | | [phone] | | | +--------+ + + + [...] + + + | Blood Pressure | 119/65 | 12/14/2017 4:56 PM | | | | | PDT | | + + + + + | Pulse | 86 | 12/14/2017 4:56 PM | | | | | PDT | | + + + + + | Temperature | 36.7 C (98.1 F) | 12/14/2017 4:56 PM | | | | | PDT | | + + + + + | Respiratory Rate | 15 | 12/14/2017 4:56 PM | | | | | PDT | | + + + + + | Oxygen Saturation | - | - | | + + + + + | Inhaled Oxygen | - | - | | | Concentration | | | | + + + + + | Weight | 116.1 kg (255 lb | 12/14/2017 4:56 PM | | | | 15.2 oz) | PDT | | + + + + + | Height | 198.1 cm (6' 6") | 12/14/2017 4:56 PM | | | | | PDT | | + + + + + | Body Mass Index | 29.58 | 12/14/2017 4:56 PM | | | | | PDT | | + + + + + documented in this encounter Medications at Time of Discharge + + + +---------+ + + | Medication | Sig | Dispensed | Refills | Start | End Date | | | | | | Date | | + + + +---------+ + + | DULoxetine | Take 20 mg by mouth | | 0 | 12/09/19 | | | (CYMBALTA) [address] | daily. | | | 18 | 0 | | capsule | | | | | | + + + +---------+ + + | metroNIDAZOLE | Take one 500 mg. | 2 | 0 | 12/14/19 | | | (FLAGYL) 500 MG | Tablet by mouth at 7 | tablet | | 18 | 0 | | tablet | pm and take one 500 | | | | | | | mg. Tablet by mouth | | | | | | | 9 pm the night | | | | | | | prior to your | | | | | | | procedure. | | | | | + + + +---------+ + + | neomycin 500 mg | Take two 500 mg | 4 | 0 | 12/14/19 | | | tablet | tablets by mouth at | tablet | | 18 | 0 | | | 7 pm and Take two | | | | | | | 500 mg tablets by | | | | | | | mouth at 9 pm the | | | | | | | night prior to your | | | | | | | surgical procedure. | | | | | + + + +---------+ + + | PEG | Please follow your | 4,000 | 0 | 12/14/19 | | | [id number] | physicians | mL | | 18 | 0 | | NaSulf | instructions for use | | | | | | (PEG-3350/ELECTROLYT | the day prior to | | | | | | ES) 236 g SOLR | your surgical | | | | | | | procedure. | | | | | + + + +---------+ + + documented as of this encounter Progress Notes Conversion Transaction, Provider Unknown - 12/14/2017 4:55 PM PDTFormatting of this note m ight be different from the original. Nurse Progress Note by Ellen Gonzalez RN at 12/14/17 8740 Author: Ellen Gonzalez RN Service: General Surgery Author Type: Registered Nurse Filed: 12/14/17 2559 Date of Service: 12/14/171654 Status: Signed Verify Rep: Ellen Gonzalez RN (Registered Nurse) Pt ambulated to void, quantity sufficient. Discharge instructions sent home with pt and gu ards. docume nted in this encounter H&P Notes Osei Boyer MD - 12/14/2017 1:16 PM PDTFormatting of this note might be different f rom the original. H&P by Osei Boyer MD at 12/14/17 1316 Author: Osei Boyer MD Service: General Surgery Author Type: Physician Filed: 12/14/17 131 Date of Service: 12/14/171315 Status: Signed Verify Rep: Osei Boyer MD (Physician) [facility] Service: Colon & Rectal Surgery Note Subjective: Patient ID: Zack Diaz a 26 y.o.male. Chief Complaint: Anal Stenosis HPI 10/13/2016: Zack Diaz a very pleasant 26 y.o.maleinmate who underwent an ex ternal hemorrhoidectomy x 3 for external hemorrhoids back in [address] Newman. Since that time the patient states he has developed "scar tissue" and has been having diffic ulty having a BM. He states that he has 2-3 BMs a day. He denies constipation. He is t aking docusate BID but is not taking miralax. He has to strain in order to have a BM and i t causes him significant pain. He states the stool softeners aren't helping He would like to discuss a possible surgical options to help correct this. 09/14/2017: Zack Wei returns to clinic today to discuss possible surgery for his anal stenosis. History as above. He obtained a dilator set, but could only insert the smallest dilator. He was unable to progress further than that. Larger dilators would not insert int o his anus and caused him significant pain and discomfort. He uses smallest dilator bid. H veronica has bowel movements every other day. Bowel movements continue to cause him pain and disco mfort. He is not taking any MiraLAX or stool softeners as the facility is continued them. He returns today to discuss possible surgical options to help alleviate the stenosis. No oth er complaints at this time. No past medical history on file. Past Surgical History Procedure Laterality Date HEMORRHOID SURGERY 06/2016 SocialHistory Social History Social History Marital status: Single Spouse name: N/A Number of children: N/A Years of education: N/A Occupational History Not on file. Social History Main Topics Smoking status: Not on file Smokeless tobacco: Not on file Alcohol use Not on file Drug use: Unknown Sexual activity: Not on file Other Topics Concern Not on file Social History Narrative No narrative on file Current Outpatient Prescriptions: sertraline (ZOLOFT) 100 MG tablet, Take 100 mg by mouth daily., Disp: , Rfl: Vitals: 09/14/17 0922 BP: 130/76 Pulse: 62 Temp: 97.1 F (36.2 C) SpO2: 100% Review of Systems Constitutional: Negative for fever, chills and fatigue. Gastrointestinal: Positive for rectal pain. Negative for nausea, vomiting, diarrhea, consti pation, blood in stool and anal bleeding. Difficulty with BM. All other systems reviewed and are negative. Objective Objective: Physical Exam Constitutional: He is oriented to person, place, and time. He appears well-developed and we ll-nourished. Cardiovascular: Normal rate. Pulmonary/Chest: Effort normal. Abdomina/Gl: Soft. He exhibits no distension. There is no tenderness. Genitourinary: Neurological: He is alert and oriented to person, place, and time. Skin: Skin is warm and dry. Psychiatric: He has a normal mood and affect. His behavior is normal. Nursing note and vitals reviewed. Assessment/Plan Assessment and Plan: 26 y.o.maleinmate SP external hemorrhoidectomy x 3 with anal stenosis and difficulty wi th BM. anal dilation was unsuccessful in helping to alleviate the anal stenosis. We will schedule him for a exam under anesthesia dermal island flap advancement. He is to restart MiraLAX daily to help soften his bowel movements to make it easier to pass. Procedure optio ns, risks, benefits and alternatives reviewed with patient who express(es) understanding. A ny and all questions were answered to their satisfaction. Osei Boyer MD 12/14/2017 documented in this encounter Procedure Notes Conversion Transaction, Provider Unknown - 12/09/2017 4:03 PM PDTFormatting of this note m ight be different from the original. Pre-Procedure Instructions by Dorita Walton RN at 12/09/17 1603 Author: Dorita Walton RN Service: (none) Author Type: Registered Nurse Filed: 12/09/17 1606 Date of Service: 12/09/17 1603 Status: Signed Verify Rep: Dorita Walton RN (Registered Nurse) Called [facility] to get mrsa nasal swab results. She states she will fax resu lts now. Received result and hard copy in chart available for review onver geovany Transaction, Provider Unknown - 11/29/2017 3:11 PM PDT Pre-Procedure Instructions by Doriat Walton RN at 11/29/17 1511 Author: Dorita Walton RN Service: (none) Author Type: Registered Nurse Filed: 11/29/17 1512 Date of Service: 11/29/17 1511 Status: Signed Verify Rep: Dorita Walton RN (Registered Nurse) Called and left message for June at [facility]. Requested she send pt MAR and allerg y list and send MRSA nasal swab result if she has it. Requested call back onver geovany Transaction, Provider Unknown - 11/02/2017 4:25 PM PDT Pre-Procedure Instructions by Dorita Walton RN at 11/02/17 1625 Author: Dorita Walton RN Service: (none) Author Type: Registered Nurse Filed: 11/02/17 1627 Date of Service: 11/02/17 1625 Status: Signed Verify Rep: Dorita Walton RN (Registered Nurse) Pre op instructions and chlorhexadine wash instructions fax[facility] pt. Resides along with request for patients MAR and allergy list and to ob tain MRSA PCR nasal swab 2 weeks prior to OR date docume nted in this encounter Miscellaneous Notes Op Note - Osei Boyer MD - 12/14/2017 3:13 PM PDTFormatting of this note might be d ifferent from the original. Op Note by Osei Boyer MD at 12/14/17 6258 Author: Osei Boyer MD Service: General Surgery Author Type: Physician Filed: 12/14/17 1928 Date of Service: 12/14/17 1516 Status: Signed Verify Rep: Osei Boyer MD (Physician) Related Notes: Original Note by Osei Boyer MD (Physician) filed at 12/14/17 3318 [facility] Service: Colon & Rectal Surgery Operative Note Pre-operative Diagnosis: Anal stenosis, S/P hemorrhoidectomy. Post-operative Diagnosis: Same Procedure(s): Right lateral island flap Surgeon: Osei Boyer MD Electrician Helper(s): none Anesthesia: General endotrachial anesthesia and Local anesthesia Estimated Blood Loss: Less Than 10 ml (Minimal) Other: Not applicable Indications: See pre-operative history [...] the usual sterile fashion. The anus showed severe stenosis with the replacement of scar at the anal verge with loss of anod erm. I decided to create one side island flap and hopefully that would be enough and he wou ld not need the other side. I started with the right side. I marked the area that would be appropriate for an advancement island flap and then using the Bovie I divided the scar tiss ue from the anal verge and that helped relax the anus and subsequently allowed the small Jm guson retractor to be passed in and after I excised the scar and I mobilized the flap I divi ded it away from the ischiorectal fat and after the flap became 90 degrees vertical to the a nus and it would drop into the anus without tension this was deemed ready for approximation and I sutured it to the rectal mucosa with interrupted 3-0 Vicryl and left the wound in the ischiorectal fossa open. Local anesthesia was infiltrated. Bacitracin dressing was applied and gauze dressing was also applied. The patient tolerated the procedure well. Condition: Stable Osei Boyer MD 12/14/2017 documented in this encounter Plan of Treatment +--------+---------+ + + + | Date | Type | Specialty | Care Team | Description | +--------+---------+ + + + | 12/27/ | Office | General Surgery | Adithya, | | | 2019 | Visit | | [address] | | | | | | [address] [facility] [address] | | | | | | [place] [address] | | | | | | [phone] | | | | | | | | +--------+---------+ + + + documented as of this encounter Visit Diagnoses + + | Diagnosis | + + | Anal stenosis Stenosis of rectum and anus | + + documented in this encounter
--- OUTSIDE RECORDS SUMMARY | ~2019-12-08 | XMS | Encounter Summary ---
Demographics + + + | Address | [address] | | | [place] [address] | + + + | Home Phone | | + + + | Preferred Language | Unknown | + + + | Marital Status | Single | + + + | Yarsanism Affiliation | Unknown | + + + [...] Phone | + + +---------+ + | [place] | ECON | Unknown | | | Corrections | | | | + + +---------+ + Care Team Providers + +------+ + | Care Tinter Photograph Name | Role | Phone | + +------+ + | No, Physician | PCP | Unavailable | + +------+ + Reason for Visit + +--------+ + | Reason | Onset | Comments | | | Date | | + +--------+ + | Surgery Appointment | 08/01/ | reschedule 08/11/19 | | | 2020 | | + +--------+ + Encounter Details +--------+ + + + + | Date | Type | Department | Care Team | Description | +--------+ + + + + | 08/01/ | Telephone | [facility] | Osei Boyer, | Surgery Appointment | | 2019 | | GENERAL SURGERY [address] | [address] | (reschedule | | | | [address] | [address] | 08/11/19) | | | | [place], [place] | [place] [address] | | | | | [address] | [phone] | | | | | [phone] | | | +--------+ + + + [...] this encounter Miscellaneous Notes Telephone Encounter - Ellen Booker - 08/02/2019 10:26 AM PDTSpoke with [place] [facility] and informed them that per Dr Boyer we are needing to reschedule this patients surgery further our for his own benefit. The corrections stated they would like September 2019. Of fered 10/13/19, they accepted and rescheduled post op appointment. No further questions or c oncerns. elephone Encyariel resendiz - Ellen Booker - 08/02/2019 9:32 AM PDTLeft message for patient to contact our o ffice and reschedule surgery with Dr Byoer documented in this enc ounter Plan of Treatment +--------+---------+ + + + | Date | Type | Specialty | Care Team | Description | +--------+---------+ + + + | 08/13/ | Office | General Surgery | Adithya, | | | 2019 | Visit | | [address] | | | | | | [address] | | | | | | [place] [address] | | | | | | [phone] | | | | | | | | +--------+---------+ + + + documented as of this encounter Visit Diagnoses Not on filedocumented in this encounter"
--- OUTSIDE RECORDS SUMMARY | ~2019-12-08 | XMS | Encounter Summary ---
Demographics + + + | Address | [address] | | | [place] [address] | + + + | Home Phone | | + + + | Preferred Language | Unknown | + + + | Marital Status | Single | + + + | Yazdanism Affiliation | Unknown | + + + | Race | Unknown | + + + | Ethnic Group | Unknown | + + + Author + + + | Author | [facility] | | | and [place] | + + + | Organization | [facility] | | | and [place] | + + + | Address | Unknown | + + + | Phone | Unavailable | + + + Support + + +---------+ + | Name | Relationship | Address | Phone | + + +---------+ + | [place] | ECON | Unknown | | | Corrections | | | | + + +---------+ + Care Team Providers + +------+ + | Care Charter Boat Operator Name | Role | Phone | [...] +--------+--------+ + + + + Encounter Details +--------+---------+ + + + | Date | Type | Department | Care Team | Description | +--------+---------+ + + + | 12/07/ | Surgery | [facility] | Osei Boyer, | EXAM UNDER | | 2019 | | [facility] | MD [address] | ANESTHESIA RECTAL; | | | | OPERATING ROOM [address] | [address] | anal flap | | | | [address] | [place] [address] | | | | | [place], [place] | [phone] | | | | | [address] | | | | | | [phone] | | | +--------+---------+ + + + [...] + + + | Blood Pressure | 133/76 | 12/08/2019 9:04 AM | | | | | PDT | | + + + + + | Pulse | 65 | 12/08/2019 9:04 AM | | | | | PDT | | + + + + + | Temperature | 36.4 C (97.6 F) | 12/08/2019 9:04 AM | | | | | PDT | | + + + + + | Respiratory Rate | 16 | 12/08/2019 9:04 AM | | | | | PDT | | + + + + + | Oxygen Saturation | 100% | 12/08/2019 9:04 AM | | | [...] Other supplements that can be taken include Furnace Combustion Analyst, Benefiber, Konsyl, or Citrucel. Continue to take [...] call us immediately or go to the [facility] Emergency R oom. After Your Surgery [...] strain that is spread mainly from pers ev-sm-aqqlry through respiratory droplets when an infected person [...] are not available, use an alcohol-based hand utility tech with at least 60 % alcohol covering [...] and need to call 911, notify the conditioning machine operator that you have or think [...] COVID-19 symptoms, residents in nursing facilities or long term communities or home health, or those who [...] or preparing your food. ? Use hand utility tech if soap and water are not available. [...] with soap and water or in the business services intern/washer. ? Call ahead before visiting your doctor. [...] proper disposal of unused medications, please visit: http://www.takebackyourmeds.org/, https://apps.Cuffed and Wanted.CFEngine.gov/pubdispsea [facility]/spring/main?execution=e1s3 ? Activities of daily living (ADL) are routine activities people do every day without matthew tance. Non-pharmacological interventions can be useful and incorporated to help with activit ies of daily living. These include, but are not limited to: Repositioning, cold/warm bruce ses, massage, decreasing environmental stimulation (decrease lighting, decrease noise), musi c, aromatherapy. FEBRUARY 2018 | [facility] Pub [phone] Location Address Phone # Take Back Hours Accepts Does NOT Accept [facility] Department [address] [place] [address] [phone] Lobby hours: M-F: 8am-5pm Sat-Sun: See their Facebook page for dates (every few weeks) - Pills: tablets, capsules (in cluding controlled substances) - Liquids - Topical lotions, gels, creams, ointments - Sharps, syringes (including insulin) - Inhalers [place] [employer] [facility] [address] [place] [address] [phone] Lobby hours: M-F: 8am-12pm, 1pm-5pm (closed 12-1pm) Sat-Sun: CLOSED - Pills: tablets, capsules (including controlled substances) - Liquids - Topical lotions, gels, creams, ointments - Sharps, syringes (including insulin) - Inhalers [place] [employer] [facility] [address] [place] [address] [phone] Lobby hours: M-F: 8:30am-4:30pm Sat-Sun: CLOSED - Pills: tablets, capsules (including controlled substances) - Patches - Liquids - Topical lotions, gels, creams, ointments - Sharps, syringes (including insulin) - Inhalers [place] [employer] [facility] [address] [place], [place] [id number] [phone] Lobby hours: M-F: 8am-5pm Sat-Sun: CLOSED - Pills: tablets, capsules (including controlled substances) - Liquids - Topical lotions, gels, creams, ointments - Sharps, syringes (including insulin) - Inhalers [facility] (store [id number]) [address] [place], [place] [id number] [phone] Pharmacy hours: M-F: 9am-9pm Sat: 8am-9pm Sun: 9am-9pm - Pills: tablets, capsules (including controlled substances) - Liquids - Topical lotions, gels, creams, ointments - Sharps, syringes (including insulin) - Inhalers [employer] (local branch of [employer]) [address] [place], [place] [id number] [phone] Call to schedule cloth picker; only for current residential customers - [...] in June [address] Brewster in [place]. Patient then developed significant s carring and [...] ANESTHESIA; Surgeon: Osei Childress i, MD; Location: [facility]; Service: General; Laterality: N/A; [...] Osei Boyer MD - 12/08/2019 12:[address] [facility] Service: Colon & Rectal Surgery Operative Note Pre-operative Diagnosis: Anal stenosis, secondary to a hemorrhoidectomy. S/P right lateral Island flap anoplasty. Patient wishes to have a larger orifice for better quality of life. Post-operative Diagnosis: Same Procedure(s): Left lateral island flap anoplasty and flexible sigmoidoscopy Surgeon: Osei Boyer MD Community Organization Aide(s): none Anesthesia: General endotrachial anesthesia and Local [...] well. Condition: Stable Osei Boyer MD 12/08/2019 [facility] Kellie Manzanares RN - 07/14/2019 10:32 AM PSTReceived MARS and allergies via fax. Reconcil ed in [facility]. documented in this encounter Plan of [...] [address] | | | | | | [place] [address] | | | | | | [phone] | | | | | | | [...] | | | | | performed at [facility];[address] | | | | | | [address];[place] | | | | | | [address] | | | | + + + + + + + + | Specimen | + + | Tissue - Entire | | nasopharynx (body | | structure) | + + + + + + + | Performing | Address | City/State/Zipcode | Phone Number | | Organization | | | | + + + + + | [facility] | [address] | [place] [address] | [phone] | + + + + + documented [...] | | + +---+ + +-------+ + +---+ + | bacitracin topical ointment | Given | 12/08/19 | 1 | | Surgical | | PRN, Starting Wed12/08/19 at | | 20 12:11 | Applicat | | Site | | 1211, Intra-op | | PM PDT | ion | | | + +-------+ + +---+ + +---+---+ | | | +---+---+ + + + +---+---+---+ | balanced electrolytes [...] +---+---+ | | | +---+---+ + +-------+ +--------+---+ + | bupivacaine 0.25%-EPINEPHrine | Given | 12/08/19 | 50 mLs | | Surgical | | 1:200,000 30 mL with lidocaine 1% | | 20 10:56 | | | Site | | 20 mL Optesia Mixture PRN, | | AM PDT | | | | | Starting Wed12/08/19 at 1056, | | | | | | | Intra-op | | | | | | + +-------+ +--------+---+ + + +---+ | | | + +---+ [...] | | | | | | longer, kllhxi-jxj-uffya use of | | | | | [...] | | | | | | | vcvjrw-kax-lxzue use of at least | | | [...] ONCE PRN, Pain, | | | Starting 12/08/19 at 1210, For | | | 1 [...]
--- OUTSIDE RECORDS SUMMARY | ~2019-12-08 | XMS | Encounter Summary ---
Demographics + + + | Address | [address] | | | [place] [address] | + + + | Home Phone | | + + + | Preferred Language | Unknown | + + + | Marital Status | Single | + + + | Yazidi Affiliation | Unknown | + + + | Race | Unknown | + + + | Ethnic Group | Unknown | + + + Author + + + | Author | [facility] | | | and [place] | + + + | Organization | [facility] | | | and [place] | + + + | Address | Unknown | + + + | Phone | Unavailable | + + + Support + + +---------+ + | Name | Relationship | Address | Phone | + + +---------+ + | [place] | ECON | Unknown | | | Corrections | | | | + + +---------+ + Care Team Providers + +------+ + | Care Bumper And Painter Name | Role | Phone | + +------+ + | No, Physician | PCP | Unavailable | + +------+ + Encounter Details +--------+ + + + + | Date | Type | Department | Care Team | Description | +--------+ + + + + | 11/16/ | Preadmit | [facility] | Osei Boyer, | | | 2019 | Visit | [facility] | [address] | | | | | CLINIC [address] | [address] | | | | | [address] [place], [place] | [place] [address] | | | | | [address] | [phone] | | | | | [phone] | | | +--------+ + + + [...] | | | | | [place] [address] | | | | | | [phone] | | | | | | | | +--------+---------+ + + + documented as of this encounter Visit Diagnoses Not on filedocumented in this encounter"
[~2019-12-08 23:17] MED LIST: DILTIAZEM ER180 M1 TP; DOCUSATE SODIU250 MG PO; HYDROCORTISONE28 GM TP; HYDROXYZINE HCL50 MG PO; NORCO 10-325 T1 EACH PO; SERTRALINE HCL50 MG PO; VASELINE18 ML TOP; VISTARIL50 MG PO
[2019-12-08] MEDS ORDERED: NORCO 5-325 TA1 EACH PO (23:26)
[2019-12-09] MEDS ORDERED: NORCO 5-325 TA1 EACH PO (18:37)
== END 2019-12-09 00:45 | disposition home or self-care (01) ==
LOC: ED 23:17
DX: K91.840 Postprocedural hemorrhage of a digestive system organ or structure following a digestive system procedure (principal); K62.5 Hemorrhage of anus and rectum
CPT/HCPCS: 80053; 85025; 99283

== ENCOUNTER 2019-12-09 18:18 | Emergency (ER) | payer OTHER ==
[~2019-12-09] VITALS: Ht 200.7 cm; Wt 124.7 kg
--- OUTSIDE RECORDS SUMMARY | ~2019-12-09 | XMS | Encounter Summary ---
Demographics + + + | Address | [address] | | | [place] [address] | + + + | Home Phone | | + + + | Preferred Language | Unknown | + + + | Marital Status | Single | + + + | Gnosticist Affiliation | Unknown | + + + | Race | Unknown | + + + | Ethnic Group | Unknown | + + + Author + + + | Author | [facility] | | | and [place] | + + + | Organization | [facility] | | | and [place] | + + + | Address | Unknown | + + + | Phone | Unavailable | + + + Support + + +---------+ + | Name | Relationship | Address | Phone | + + +---------+ + | [place] | ECON | Unknown | | | Corrections | | | | + + +---------+ + Care Team Providers + +------+ + | Care Investigator Utility Bill Complaints Name | Role | Phone | + +------+ + | No, Physician | PCP | Unavailable | + +------+ + Encounter Details +--------+ + + + + | Date | Type | Department | Care Team | Description | +--------+ + + + + | 12/08/ | Orders Only | [facility] | Conversion | | | 2018 | | [address]VERSION [address] | Transaction, | | | | | [address] | Provider Unknown | | | | | [place] | | | | | | [address] | | | | | | [phone] | | | +--------+ + + + + Social History + +-------+ +--------+------+ | Tobacco Use | Types | Packs/Day | Years | Date | | | | | Used | | + +-------+ +--------+------+ | Never Assessed | | | | | + +-------+ +--------+------+ + + + | Sex Assigned at | Date Recorded | | | | + + + | Not on file | | + + + documented as of this encounter Plan of Treatment +--------+---------+ + + + | Date | Type | Specialty | Care Team | Description | +--------+---------+ + + + | 12/27/ | Office | General Surgery | Adithya, | | | 2020 | Visit | | [address] | | | | | | [address] | | | | | | [place] [address] | | | | | | [phone] | | | | | | | | +--------+---------+ + + + documented as of this encounter Visit Diagnoses Not on filedocumented in this encounter"
--- OUTSIDE RECORDS SUMMARY | ~2019-12-09 | XMS | Encounter Summary ---
Demographics + + + | Address | [address] | | | [place] [address] | + + + | Home Phone | | + + + | Preferred Language | Unknown | + + + | Marital Status | Single | + + + | Methodist Affiliation | Unknown | + + + | Race | Unknown | + + + | Ethnic Group | Unknown | + + + Author + + + | Author | [facility] | | | and [place] | + + + | Organization | [facility] | | | and [place] | + + + | Address | Unknown | + + + | Phone | Unavailable | + + + Support + + +---------+ + | Name | Relationship | Address | Phone | + + +---------+ + | [place] | ECON | Unknown | | | Corrections | | | | + + +---------+ + Care Team Providers + +------+ + | Care Semiconductor Packages Platemaker Name | Role | Phone | + [...] + + | 07/05/ | Office | [facility] | Adithya, | Anal stenosis | | 2020 | Visit | GENERAL SURGERY [address] | [address] | (Primary Dx) | | | | [address] | [address] | | | | | [place], [place] | [place] [address] | | | | | [address] | [phone] | | | | | [phone] | | | +--------+---------+ + + + [...] with bowel movement HISTORY OF PRESENT ILLNESS Zack Wei is a very pleasant 28-year-old male patient who is well-known to our servic e. Patient is currently an inmate. He underwent an external hemorrhoidectomy x3 for hemorr hoids back in June [address] Brewster in [place]. Patient then developed significant s carring and [...] ANESTHESIA; Surgeon: Osei Childress i, MD; Location: [facility]; Service: General; Laterality: N/A; [...] file Gets together: Not on file Attends oriental orthodox service: Not on file Active member of [...] procedure., Disp: 4 tablet, Rfl: 0 PEG 8539-ENt-VbVhr-NaCl-NaSulf (PEG-3350/ELECTROLYTES) 236 g SOLR, Please follow your [...] | | | | | | [address] [facility] [address] | | | | | | [place] [address] | | | | | | [phone] | | | | | | | | +--------+---------+ + + + documented as of this encounter Visit Diagnoses + + | Diagnosis | + + | 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
--- OUTSIDE RECORDS SUMMARY | ~2019-12-09 | XMS | Encounter Summary ---
Demographics + + + | Address | [address] | | | [place] [address] | + + + | Home Phone | | + + + | Preferred Language | Unknown | + + + | Marital Status | Single | + + + | Yarsani Affiliation | Unknown | + + + | Race | Unknown | + + + | Ethnic Group | Unknown | + + + Author + + + | Author | [facility] | | | and [place] | + + + | Organization | [facility] | | | and [place] | + + + | Address | Unknown | + + + | Phone | Unavailable | + + + Support + + +---------+ + | Name | Relationship | Address | Phone | + + +---------+ + | [place] | ECON | Unknown | | | Corrections | | | | + + +---------+ + Care Team Providers + +------+ + | Care Development And Planning Engineer Name | Role | Phone | + +------+ + | No, Physician | PCP | Unavailable | + +------+ + Encounter Details +--------+ + + + + | Date | Type | Department | Care Team | Description | +--------+ + + + + | 12/13/ | Orders Only | [facility] | Adithya, | | | 2018 | | GENERAL SURGERY [address] | [address] | | | | | [address] | [address] | | | | | [place], [place] | [place] [address] | | | | | [address] | [phone] | | | | | [phone] | | | +--------+ + + + [...] General Surgery | Adithya, | | | 2019 | Visit | | [address] | | | | | | [address] | | | | | | [facility] [place] [place] [address] | | | | | | [phone] | | | | | | | | +--------+---------+ + + + documented as of this encounter Visit Diagnoses Not on filedocumented in this encounter"
--- OUTSIDE RECORDS SUMMARY | ~2019-12-09 | XMS | Encounter Summary ---
Demographics + + + | Address | [address] | | | [place] [address] | + + + | Home Phone | | + + + | Preferred Language | Unknown | + + + | Marital Status | Single | + + + | Anabaptist Affiliation | Unknown | + + + | Race | Unknown | + + + | Ethnic Group | Unknown | + + + Author + + + | Author | [facility] | | | and [place] | + + + | Organization | [facility] | | | and [place] | + + + | Address | Unknown | + + + | Phone | Unavailable | + + + Support + + +---------+ + | Name | Relationship | Address | Phone | + + +---------+ + | [place] | ECON | Unknown | | | Corrections | | | | + + +---------+ + Care Team Providers + +------+ + | Care Pharmacy Salesperson Name | Role | Phone | + +------+ + | No, Physician | PCP | Unavailable | + +------+ + Reason for Visit + +--------+ + | Reason | Onset | Comments | | | Date | | + +--------+ + | Other | 10/11/ | | | | 2020 | | + +--------+ + | Procedure | 10/11/ | sooner date | | | 2020 | | + +--------+ + Encounter Details +--------+ + + + + | Date | Type | Department | Care Team | Description | +--------+ + + + + | 10/11/ | Telephone | [facility] | Osei Boyer, | Other; Procedure | | 2020 | | GENERAL SURGERY [address] | MD [address] | (sooner date) | | | | [address] | [address] | | | | | [place], [place] | [place] [address] | | | | | [address] | [phone] | | | | | [phone] | | | +--------+ + + + [...] + + documented as of this encounter Miscellaneous Notes Telephone Encounter - Samira Begum Rapid Extractor Operator - 10/13/2019 1:07 PM PDTAttem pted to return the call of Nancy at [facility]. No answer. LVM stating I am ret urning her call in regards to patients surgery with Dr. Boyer. Left office phone number and encouraged Nancy to call me back. elephone Encounter - Letty Maldonado - 10/12/2019 1:11 PM PDTNicole, is calling again for Other and Procedure (sooner date) and would like a call back. Additional Call Details: Patient is scheduled for procedure 12/07, checking to see if ther e is a sooner appointment? [phone] elephone Encounter - Samira Dominguez res Rapid Extractor Operator - 10/12/2019 10:34 AM PDTSpoke with Ashlyn who states we ne ed to reschedule patients 10/13/19 surgery due to not having the pre-op COVID test done. I o ffered next available 12/08/19. Ashlyn accepted this on behalf of the patient.Electronically si gned by Joselito Wilder at 10/12/2019 10:56 AM PDTTelephone Encounter - Fatoumata Agustin - 10/12/2019 8:38 AM PDTKim, is calling regarding Other and would like a call back. Additional Call Details: Requesting call back regarding Covid 19 testing. She stated they were unable to get the patient screened via test and are wondering if he is still able to muro ve his surgery tomorrow 10/12 morning. Please contact [phone] If this is a symptom based call, was patient offered triage? Not Applicable If this is a symptom based call and you were unable to immediately transfer the call to a xochilt gore blade grader operator was caller made aware that if at any time he feels it is an emergency they soila uld call 911 or go to the nearest emergency room? not applicable documented in this encounter Plan of Treatment +--------+---------+ + + + | Date | Type | Specialty | Care Team | Description | +--------+---------+ + + + | 12/27/ | Office | General Surgery | Adithya, | | 2019 | Visit | | [address] | | | | | | [address] | | | | | | [place] [address] | | | | | | [phone] | | | | | | | | +--------+---------+ + + + documented as of this encounter Visit Diagnoses Not on filedocumented in this encounter"
--- OUTSIDE RECORDS SUMMARY | ~2019-12-09 | XMS | Encounter Summary ---
Demographics + + + | Address | [address] | | | [place] [address] | + + + | Home Phone | | + + + | Preferred Language | Unknown | + + + | Marital Status | Single | + + + | Latter-Day Affiliation | Unknown | + + + | Race | Unknown | + + + | Ethnic Group | Unknown | + + + Author + + + | Author | [facility] | | | and [place] | + + + | Organization | [facility] | | | and [place] | + + + | Address | Unknown | + + + | Phone | Unavailable | + + + Support + + +---------+ + | Name | Relationship | Address | Phone | + + +---------+ + | [place] | ECON | Unknown | | | Corrections | | | | + + +---------+ + Care Team Providers + +------+ + | Care Post Graduate Internship Name | Role | Phone | + +------+ + | No, Physician | PCP | Unavailable | + +------+ + Reason for Visit +---------+--------+ + | Reason | Onset | Comments | | | Date | | +---------+--------+ + | Post Op | 11/02/ | schedule | | | 2020 | | +---------+--------+ + Encounter Details +--------+ + + + + | Date | Type | Department | Care Team | Description | +--------+ + + + + | 11/02/ | Telephone | [facility] | Osei Boyer, | Post Op (schedule) | | 2020 | | GENERAL SURGERY [address] | MD [address] | | | | | [address] | [address] | | | | | [place], [place] | [place] [address] | | | | | [address] | [phone] | | | | | [phone] | | | +--------+ + + + [...] this encounter Miscellaneous Notes Telephone Encounter - Alexey Manuela Lu - 11/03/2019 9:09 AM PDTKennym-Yaima Acosta, is calling regarding Post Op (schedule) and would like a call back. Additional Call Details: Call back at: [phone] If this is a symptom based call, was patient offered triage? Not Applicable If this is a symptom based call and you were unable to immediately transfer the call to a p sofía oracle distribution consultant was caller made aware that if at [...] [address] | | | | | | [place] [address] | | | | | | [phone] | | | | | | | | +--------+---------+ + + + documented as of this encounter Visit Diagnoses Not on filedocumented in this encounter"
--- OUTSIDE RECORDS SUMMARY | ~2019-12-09 | XMS | Encounter Summary ---
Demographics + + + | Address | [address] | | | [place] [address] | + + + | Home Phone | | + + + | Preferred Language | Unknown | + + + | Marital Status | Single | + + + | Cheondoism Affiliation | Unknown | + + + | Race | Unknown | + + + | Ethnic Group | Unknown | + + + Author + + + | Author | [facility] | | | and [place] | + + + | Organization | [facility] | | | and [place] | + + + | Address | Unknown | + + + | Phone | Unavailable | + + + Support + + +---------+ + | Name | Relationship | Address | Phone | + + +---------+ + | [place] | ECON | Unknown | | | Corrections | | | | + + +---------+ + Care Team Providers + +------+ + | Care Grain Broker Name | Role | Phone | + +------+ + | No, Physician | PCP | Unavailable | + +------+ + Reason for Visit Auth/Cert +--------+--------+ + + + + | Status | Reason | Specialty | Diagnoses / | Referred By | Referred To | | | | | Procedures | Contact | Contact | +--------+--------+ + + + + | | | | Diagnoses | | | | | | | Anal | | | | | | | stenosis | | | | | | | Procedures | | | | | | | EXAM UNDER | | | | | | | ANESTHESIA | | | | | | | RECTAL; | | | | | | | dermal flap | | | +--------+--------+ + + + + Encounter Details +--------+ + + + + | Date | Type | Department | Care Team | Description | +--------+ + + + + | 12/07/ | Hospital | [facility] | Osei Boyer, | Anal stenosis | | 2020 | Encounter | [facility] | MD [address] | | | | | [address] | [address] | | | | | [address] | [place] [address] | | | | | [place], [place] | [phone] | | | | | [id number] | | | | | | [phone] | | | +--------+ + + + [...] + + documented as of this encounter Last Filed Vital Signs + + + [...] | | + + + + + documented in this encounter Discharge Instructions Instructions Mayi Suh RN - 12/08/2019Formatting of this note might be differen t from the original. Anal Surgery Post-Surgical Instructions Osei Boyer MD MEDICATIONS You will be given a prescription for pain. Take 1-2 tablets every 4-6 hours as needed. Pa in medications will ease your pain, but you should expect some incisional pain for about 7-1 0 days. You should walk often, cough and take deep breathes. DIET You will begin a high fiber diet. The easiest way to a high fiber diet is to take a fiber supplement. An excellent supplement is plain, unflavored Metamucil. You should take one ta blespoon in 8 oz of water twice a day. Ideally, you should take the supplement before break fast and dinner. You may experience some gas bloating for the first 2 weeks. This is ayo l and will go away as long as you keep taking the supplement. Other supplements that can be taken include Trade Embalmer, Benefiber, Konsyl, or Citrucel. Continue to take the fiber supple ment for 1 month. In addition, go to the drugstore and get Zen s Milk of Magnesia. While you are taking your prescription pain medication, take 2 tablespoons of Milk of Magnesia each morning. Th is will prevent you from getting overly constipated while on the narcotic drug. Once you st op taking the prescription pain medication, you may stop taking the Milk of Magnesia. WOUND CARE You will perform sitz baths two-three times a day for 3-4 weeks. Sitz baths simply mean so aking your anus in a tub of warm-hot water for about 15 minutes. Sitz baths will clean the anal wound as well as relax the anal sphincter muscles, which will help minimize your pain. Be careful around the anal wound, especially if you have stitches on the outside. Gently p at your anus dry (never rub) or simply dry your anus with a blow-dryer set to cool/warm. D o not soak your anus beyond 15 minutes. ACTIVITY After surgery, your driving reflexes will be slower, especially if you are taking pain medi cations. Therefore, you are restricted from driving until after your follow-up visit and af ter you have stopped taking your prescription pain meds. You may walk about the house, go s hopping, or eat at a restaurant. You may also climb stairs, but no weight lifting, power-wa lking, jogging, or using the Stair-Master . You can sit on your wound, but keep in min d that the less you sit, the less pain you will have. APPOINTMENT Please call our office for an appointment. This will allow ample time for the swelling and soreness to resolve before your wound is examined. There may be some bleeding from your wo und. This is normal. If you begin bleeding heavily, have fevers, chills, or if you are con cerned about your wound, please call us immediately or go to the [facility]. After Your Surgery You ve just had surgery. During surgery, you received medication called anesthesia to rowan p you comfortable and pain-free. After surgery, you may experience some pain or nausea. This is common. Going Home Have an adult family member or friend drive you home. For the first 24 hours after your fatuma santy: ? Do not drive or use heavy equipment. ? Do not make important decisions or sign legal documents. ? Avoid alcohol. ? Have someone stay with you, if needed. He or she can watch for problems and help keep you safe. Be sure to keep all follow-up appointments with your doctor. And rest after your procedure for as long as your doctor tells you to. Coping with Pain If you have pain after surgery, pain medication will help you feel better. Take your medica tion as directed, before pain becomes severe. Consider other ways to control pain, such as with heat, ice, and relaxation. To get the best relief possible, remember these points: ? Pain medications can upset your stomach. Taking them with a little food may help. ? Most pain relievers taken by mouth need at least 20 to 30 minutes to take effect. ? Taking medication on a schedule can help you remember to take it. Try to time your medica tion so that you can take it before beginning an activity, such as dressing, walking, or sit ting down for dinner. ? Don t drink alcohol while taking pain medication. ? Don t drive or operate machinery while taking pain medications as they can slow your re flexes. If your health care provider tells you to take acetaminophen or ibuprofen to help relieve y our pain, ask him or her how much you are supposed to take each day. Constipation ? Constipation is a common side effect of pain medications and anesthetics. Contact your do ctor before taking any medications like laxatives or stool softeners to help relieve constip ation, unless they have been prescribed for you. ? Drinking lots of non-alcoholic fluids and eating foods like fruits and vegetables that ar e high in fiber can also help. Managing Nausea Some people have an upset stomach after surgery. This is often due to anesthesia, pain, sharmin n medications, or the stress of surgery. If you were on a special diet before surgery, ask your doctor if you should follow it during recovery. These tips may help: ? Don t push yourself to eat. Your body will tell you when to eat and how much. ? Start off with clear liquids and soup. They are easier to digest. Slowly move to solid f oods. Don t eat fatty, rich, or spicy foods at first. ? Don t force yourself to have three large meals a day. Instead, eat smaller amounts more often. Blood Clot Prevention Deep vein thrombosis (DVT) is a clot that forms in your deep veins usually in the leg o r thigh. A pulmonary embolism (PE) occurs when a clot in the bloodstream travels through th e heart and into the lungs. If the clot becomes stuck in a blood vessel in the lungs, blood flow can be blocked which causes life-threatening heart and lung problems. The following are prevention tips: ? Elevate your legs whenever they feel swollen or heavy ? Maintain a healthy weight ? Quit smoking ? Avoid sitting, standing, or lying down for long periods without moving your legs and feet . o When traveling by car, make frequent stops to get out and move around. o On long airplane, train, or bus rides, get up and move around when possible. o If you can t get up, wiggle your toes and tighten your calves to keep your blood moving . If you have any of these symptoms of DVT or PE, call your doctor: ? Swelling, pain, or both, often in one limb ? Redness or warmth, often in one limb ? Sudden, continuous pain deep in your muscle ? Worsening ache when you are active or when you stand still for a long time ? Rapid, pounding, or unusual heartbeat ? Sweating more than usual. ? Chest pain, trouble breathing, coughing up blood, skin turning blue, or fainting Call 911. What is Coronavirus? The Novel Coronavirus 2019 (COVID-19) is a new virus strain that is spread mainly from pers nx-qi-vyrwcr through respiratory droplets when an infected person coughs or sneezes. Symptom s may appear 2-14 days after exposure. Reported illnesses have ranged from mild symptoms to severe illness and for confirmed cases. Some people testing positive for COVID-19 have no symptoms at all (asymptomatic). The most common symptoms include: ? Cough ? Shortness of breath or difficulty breathing ? Fever ? Chills ? Muscle pain ? Sore throat ? New loss of taste or smell COVID-19 is most commonly spread from an infected person to others through: ? Between people who are in close contact with one another (within about 6 feet). ? Respiratory droplets produced by coughing and sneezing. These droplets can land in the mo uths or nose of people who are nearby or possibly be inhaled into the lungs. ? Touching a surface with the virus on it and then touching your mouth, nose, or eyes befor e washing your hands. How to protect yourself ? Avoid touching your eyes, nose and mouth with unwashed hands. ? Wash your hands often with soap and water for at least 20 seconds. This is especially imp ortant after blowing your nose, coughing, or sneezing; going to the bathroom; and before eat ing or preparing food. ? If soap and water are not available, use an alcohol-based hand post doctoral fellow with at least 60 % alcohol covering all surfaces of your hands and rubbing them together until they feel dry. ? Cover your cough or sneeze with a tissue, then throw the tissue in the trash. (Putting a tissue on a table contaminates the surface of the table with germs.) ? Routinely disinfect frequently touched objects and surfaces, using a cleaning spray or wi pe. ? Avoid travel to high-risk countries. Non-essential travel to or through any of the countr ies for which the CDC has issued a level 2 or 3 travel health notice is discouraged. https://www.cdc.gov/coronavirus/2019-ncov/travelers/index.html ? Stay at least 6 feet away from others when in public places, do not gather in groups, sta y out of crowded places, and avoid mass gatherings to slow the spread of the virus. ? Use of a simple cloth face covering to slow the spread of the virus in public settings wh ere it's hard to stay away from others, such as in grocery stores, pharmacies, and other are as where the virus might easily spread. Cloth masks do not protect the wearer but instead h old in droplets from sneezing or coughing to prevent spreading to other people and surfaces. Cloth face coverings fashioned from household items or made at home from common materials a t low cost can be used. It is not recommended to use surgical masks or N-95 respirators. A few definitions that you should be familiar with regarding COVID-19: Quarantine is used to keep someone who might have been exposed to COVID-19 away from others . Isolation is used to separate people infected with the virus (those who are sick from COVID -19 and those with no symptoms) from people who are not infected. Both quarantine and isolation are similar that they: ? involve separation of people to protect the public ? help limit further spread of COVID-19 ? can be done voluntarily or be required by health authorities What to do if you are sick? ? If you have a fever and cough, you may have COVID-19. Notify your medical provider. ? Stay home except to get medical care (see for Home Isolation) ? Monitor your symptoms When you should seek medical evaluation and advice? ? Call 911 if you have a medical emergency such as trouble breathing, persistent pain or pr essure in the chest, and/or bluish lips or face. If you have a medical emergency and need to call 911, notify the laser beam machine operator that you have or think you might have, COVID-19. If possible, put on a facemask before medical help arrives. ? If you are 65 and older, or have underlying conditions such as , heart disease, diabetes, lung disease and weakened immune system, work with your doctor to develop a plan t o determine your health risks to COVID-19 and how to manage symptoms. If you do have symptom s, contact your doctor immediately. ? For worsening symptoms or difficulty breathing, please contact your primary care provider or consider a virtual visit. ? If you do not have a high-risk condition and your symptoms are mild, you do not need to b e evaluated in person and do not need to be tested for COVID-19. (Please see Home Quarantin e and Isolation Instructions below) ? We ask that you please avoid coming to the emergency department, unless you have a health emergency and/or you have been advised by a provider to do so. This helps prevent the risk of spreading this disease and further exposure in our community and allows us to dedicate cr itical and limited emergency resources to those who are very sick. Who should be tested? A common question right now is, Why can't I get tested? The answer: Not everyone need s to be tested. Given the short supply of testing supplies and protective equipment for our health care workers, the CDC recommends that people who are hospitalized, healthcare worker who have COVID-19 symptoms, residents in nursing facilities or penitentiary communities or home health, or those who are high risk (older adults, chronic diseases, immunosuppressed) s hould be prioritized for testing. These recommendations may evolve to include more people ov er time, as this situation is evolving rapidly. It is not recommended to test individuals wh o do not have COVID-19 symptoms. What to do if you think you have been exposed to COVID-19? If you feel healthy but recently had close contact with a person known to have COVID-19, yo u need to self-quarantine. Follow the self-quarantine instructions listed below: ? Check your temperature twice a day ? Stay home for 14 days from the time of exposure and self-monitor for fever, cough, and sh ortness of breath. ? Contact your medical provider if your temperature is greater than 100.4 and you develop c ough or shortness of breath. ? If possible, stay away from people who are high-risk for getting very sick from COVID-19. Does this mean my family or other people I live with need to self-quarantine? Other members of the household are not required to self-quarantine, unless they have been t old by a medical professional to do so. If you develop symptoms and are suspected to have CO VID-19, members of the household will be classified as close contacts and will then need to be in self-quarantine. Please speak to your health care provider and/or health department fo r further instructions. What are the guidelines for home quarantine and home isolation? ? Restrict activities outside your home, except for seeking medical care. ? Do not go to work, another person's home, school or public areas. ? Do not use public transportation. ? Cover coughs and sneezes. ? Avoid close contact with household members. When this is not possible, stay at least 6 fe et from other people and wear a cloth face covering. During the COVD-19 pandemic, medical-gr misael masks are reserved for healthcare workers. ? Use separate sleeping and bathroom/bathing facilities, if feasible. ? Wash your hands often with soap and water for at least 20 seconds. This is especially imp ortant after blowing your nose, coughing, or sneezing; going to the bathroom; and before eat ing or preparing your food. ? Use hand post doctoral fellow if soap and water are not available. Use an alcohol-based hand sanitiz er with at least 60% alcohol, covering all surfaces of your hands and rubbing them together until they feel dry ? Cover your mouth and nose with a tissue when you cough or sneeze. Throw away used tissues in a lined trash can. Wash your hands afterwards. ? Clean and disinfect high-touch surfaces in your sick room and bathroom with a house hold disinfectant. High-touch surfaces include phones, remote controls, counters, doorknobs, tabletops, bathroom fixtures, toilets, keyboards, and bedside tables. Let someone else ayesha n and disinfect surfaces in common areas, but not your bedroom and bathroom. ? Avoid sharing personal household items (dishes, drinking glasses, cups, eating utensils, towels, or bedding) with other people or pets in your home. After using these items, they sh ould be washed thoroughly with soap and water or in the automotive welder/washer. ? Call ahead before visiting your doctor. This will help the healthcare provider's office t elina steps to keep other people from getting infected or exposed. ? If you have been tested for COVID-19, stay home until your healthcare provider contacts y ou about your test results. When should I discontinue self-quarantine? If you have tested positive for COVID-19, you can leave home after these three things have happened: ? At least 3 days (72 hours) have passed since resolution of fever (temperature less than 1 00.0F or 37.8C) without the use of fever-reducing medications (e.g. Tylenol, Ibuprofen) AND ? At least 3 days of improvement in respiratory symptoms (e.g. cough, shortness of breath) AND ? At least 10 days have passed since symptoms first appeared If you have tested positive for COVID-19 and are retested, you can leave home after these t hree things have happened: ? Resolution of fever (temperature less than 100.0F or 37.8C) without the use of fever-redu cing medications (e.g. Tylenol, Ibuprofen) AND ? Improvement in respiratory symptoms (e.g. cough, shortness of breath) AND ? Negative test results of COVID-19 from at least two consecutive samples collected 24 hrs or more apart If you are waiting for COVID-19 test results or you are symptomatic but did not require matt ting, you can leave home after the following things have happened: ? At least 3 days (72 hours) have passed since resolution of fever (temperature less than 1 00.0F or 37.8C) without the use of fever-reducing medications (e.g. Tylenol, Ibuprofen) and at least 3 days of improvement in respiratory symptoms (e.g., cough, shortness of breath), a nd at least 10 days have passed since symptoms first appeared. OR ? Two negative test results received and at least 24 hours have passed since resolution of fever (temperature less than 100.0F or 37.8C) without the use of fever-reducing medications (e.g. Tylenol, Ibuprofen). How is COVID-19 treated? Most people with COVID-19 will recover on their own. There is no specific antiviral treatm ent recommended for COVID-19 at this time. People with COVID-19 should receive supportive ca re to help relieve symptoms. For severe cases, treatment should include care to support rebecca l organ functions. Additional Information For up-to-date information about coronavirus and the community public health response, visi t your local public health website. CDC: COVID-19: https://www.cdc.gov/coronavirus/2019-ncov/index.html Local Drug Take Back Locations, Pain Management and Opioids: Pain Management, Prescription Opioids: Opioid medications can be addictive and anyone is at risk for developing an opioid use disorder. Keep yourself and others safe by limiting usage , disposing of all unused medications, and knowing how to recognize the signs of opioid use disorder. Be informed of the options available to help manage and treat your pain. Review t he pain management plan of care with your provider. ? What is an Opioid? Opioids are a class of drugs that include pain relievers available leg ally by prescription. Opioid pain relievers can be effective in treatment for relieving pain , however, regular use can lead to dependence, and misuse of opioid pain relievers. ? What are the risks? Opioid use disorder, physical dependence, falls and accidents, increa sed sensitivity to pain and overdose. Talk to your physician before combining medication. ? Safe storage: Never share or sell your opioid medications, keep opioid medications locked or in a safe location, keep out of reach of children and out of sight from others. Leave in the original bottle with the label attached. ? Possible side effects: Nausea, vomiting, and dry mouth, constipation, sleepiness and dizz iness, confusion, respiratory depression, withdrawal. ? Proper disposal: You are not required to use all of your opioid medication. To find your nearest take-back location for proper disposal of unused medications, please visit: http://www.takeSenzariyourmeds.org/, https://apps.[employer].gov/pubdispsea [facility]/spring/main?execution=e1s3 ? Activities of daily living (ADL) are routine activities people do every day without matthew tance. Non-pharmacological interventions can be useful and incorporated to help with activit ies of daily living. These include, but are not limited to: Repositioning, cold/warm bruce ses, massage, decreasing environmental stimulation (decrease lighting, decrease noise), musi c, aromatherapy. FEBRUARY 2018 | [facility] Pub [phone] Location Address Phone # Take Back Hours Accepts Does NOT Accept [employer] [address] [place] [address] [phone] Lobby hours: M-F: 8am-5pm Sat-Sun: See their Facebook page for dates (every few weeks) - Pills: tablets, capsules (in cluding controlled substances) - Liquids - Topical lotions, gels, creams, ointments - Sharps, syringes (including insulin) - Inhalers [place] [employer] [facility] [address] [place] [address] [phone] Lobby hours: M-F: 8am-12pm, 1pm-5pm (closed 12-1pm) Sat-Sun: CLOSED - Pills: tablets, capsules (including controlled substances) - Liquids - Topical lotions, gels, creams, ointments - Sharps, syringes (including insulin) - Inhalers [employer] [address] [place] [address] [phone] Lobby hours: M-F: 8:30am-4:30pm Sat-Sun: CLOSED - Pills: tablets, capsules (including controlled substances) - Patches - Liquids - Topical lotions, gels, creams, ointments - Sharps, syringes (including insulin) - Inhalers [employer] [address] [place], [place] [id number] [phone] Lobby hours: M-F: 8am-5pm Sat-Sun: CLOSED - Pills: tablets, capsules (including controlled substances) - Liquids - Topical lotions, gels, creams, ointments - Sharps, syringes (including insulin) - Inhalers [facility] ([id number]) [address] [place], [place] [id number] [phone] Pharmacy hours: M-F: 9am-9pm Sat: 8am-9pm Sun: 9am-9pm - Pills: tablets, capsules (including controlled substances) - Liquids - Topical lotions, gels, creams, ointments - Sharps, syringes (including insulin) - Inhalers [employer] (local branch of [employer]) [address] [place], [place] [id number] [phone] Call to schedule pick remover; only for current residential customers - Sharps, syringes (MUST be inside sharps container) - Drugs: including oral, topical, injectable, inhalers Last updated 08/2019 documented in this encounter Medications at Time of Discharge + + + +---------+ + + | Medication | Sig | Dispensed | Refills | Start | End Date | | | | | | Date | | + + + +---------+ + + | ketotifen | 1 drop 2 times | | 0 | | | | (ZADITOR) 0.025% | daily. | | | | | | ophthalmic solution | | | | | | + + + +---------+ + + | Naphazoline HCl | Apply to eye 2 | | 0 | | | | (NAPHCON OP) | times daily. | | | | | + + + +---------+ + + | naproxen | Take 500 mg by mouth | | 0 | | | | (NAPROSYN) 500 mg | Twice daily as | | | | | | tablet | needed for Pain. | | | | | + + + +---------+ + + | | Take 1 tablet by | 20 | 0 | 12/08/19 | | | oxyCODONE-acetaminop | mouth every 6 hours | tablet | | 20 | 0 | | hen (PERCOCET) 5-325 | as needed for Pain | | | | | | mg per tablet | for up to 14 days. | | | | | + + + +---------+ + + | Polyethylene | by Does not apply | | 0 | | | | Glycol POWD | route. | | | | | + + + +---------+ + + documented as of this encounter Progress Notes Alexandra Mccormick RN - 12/08/2019 1:52 PM PDTDischarge instructions given to patient an d verbally and written instructions sent with correctional transport team. See AVS for full education Instructions included but not limited to: S/S of infection, prevention, and who to call in the event this occurs. S/S of a DVT, prevention, and what to do in the event this occurs. Medication management to include pain medications. Activity restrictions to include but not limited to lifting, pulling, driving, working, bat ancelmo/swimming/pools/and hot tub use. Incision care and continue to do sitz baths. Coughing and deep breathing. When to call facility medical staff. VSS at this time. Amb hallway/room. Voided per protocol. Pain controlled per patients acceptable comfort level at this time. No uncontrollable nausea and vomiting. Prescriptions and all personal belongings sent home with patient at discharge. D/C criteria met per protocol. documented in thi s encounter H&P Notes Osei Boyer MD - 12/08/2019 9:38 AM PDTFormatting of this note might be different f rom the original. Service: Colorectal Surgery History & Physical ID: Zack Wei; DATE OF VISIT: 12/08/2019 History Obtained From: History obtained from chart review and the patient. CHIEF COMPLAINT: anal stenosis HISTORY OF PRESENT ILLNESS From note in Jun 2019: Zack Wei is a very pleasant 28-year-old male patient who is well-known to our servic e. Patient is currently an inmate. He underwent an external hemorrhoidectomy x3 for hemorr hoids back in June [address] Brewster in [place]. Patient then developed significant s carring and [...] extreme difficulty in having a bowel movement. 12/08/19: Patient with anal stenosis, no new complaint. Procedure options, risks, benefits and altern atives reviewed with patient who express(es) understanding. Any and all questions were answ ered to their satisfaction. Active comorbid conditions include: - obesity; BMI (30-39) REVIEW OF SYSTEMS Review of Systems All other systems reviewed and are negative. History reviewed. No pertinent past medical history. Past Surgical History: Procedure Laterality Date HEMORRHOID SURGERY 06/2016 OTHER SURGICAL HISTORY 12/14/2017 EXAMINATION UNDER ANESTHESIA - Procedure: EXAM UNDER ANESTHESIA; Surgeon: Osei Childress i, MD; Location: [facility]; Service: General; Laterality: N/A; Dermal Island flap adv ancement. No Known Allergies Medications Prior to Admission Medication Sig Dispense Refill ketotifen (ZADITOR) 0.025% ophthalmic solution 1 drop 2 times daily. Naphazoline HCl (NAPHCON OP) Apply to eye 2 times daily. naproxen (NAPROSYN) 500 mg tablet Take 500 mg by mouth Twice daily as needed for Pain. Polyethylene Glycol POWD by Does not apply route. History reviewed. No pertinent family history. Social History Tobacco Use Smoking Status Never Smoker Social History Substance and Sexual Activity Alcohol Use None PHYSICAL EXAM BP 133/76 | Pulse 65 | Temp 36.4 C (97.6 F) (Temporal) | Resp 16 | Ht 2.007 m (6' 7 ") | Wt 124.7 kg (274 lb 14.6 oz) | SpO2 100% | BMI 30.97 kg/m Wt. Admission: Weight: 124.7 kg (274 lb 14.6 oz) Wt. Current: Weight: 124.7 kg (274 lb 14.6 oz) Body mass index is 30.97 kg/m. Physical Exam Vitals signs reviewed. HENT: Head: Atraumatic. Mouth/Throat: Mouth: Mucous membranes are moist. Eyes: Pupils: Pupils are equal, round, and reactive to light. Neck: Musculoskeletal: Neck supple. Cardiovascular: Rate and Rhythm: Normal rate. Pulmonary: Effort: Pulmonary effort is normal. Abdominal: Palpations: Abdomen is soft. Skin: General: Skin is warm. Neurological: Mental Status: He is alert and oriented to person, place, and time. Psychiatric: Mood and Affect: Mood normal. Labs: No results for input(s): WBC, HGB, HCT, PLT, MCV in the last 72 hours. Invalid input(s): BANDSPCT No results for input(s): NA, K, CL, CO2, BUN, CREA, CALCIUM, MG, PHOS in the last 72 hours. ASSESSMENT & PLAN Patient s/p unilateral flap anoplasty for anal stenosis which helped him but not optimal function and he is asking for the contralateral side. Scheduled for a flap anoplasty for lea stenosis.Procedure options, risks, benefits and alternatives reviewed with patient who exp ress(es) understanding. Any and all questions were answered to their satisfaction. . Osei Boyer MD 9:38 AM PDT; 12/08/2019 cc: No Physician on file documented in this encounter Miscellaneous Notes Op Note - Osei Boyer MD - 12/08/2019 12:29 PM [facility] Service: Colon & Rectal Surgery Operative Note Pre-operative Diagnosis: Anal stenosis, secondary to a hemorrhoidectomy. S/P right lateral Island flap anoplasty. Patient wishes to have a larger orifice for better quality of life. Post-operative Diagnosis: Same Procedure(s): Left lateral island flap anoplasty and flexible sigmoidoscopy Surgeon: Osei Boyer MD Agate Setter(s): none Anesthesia: General endotrachial anesthesia and Local anesthesia Estimated Blood Loss: 1 ml Other: Not applicable Indications: See pre-operative history and physical. Findings: Severe anal stenosis, would barely allow little finger through, loss of anoderm that is replaced by scar. Complications: None acute Description of Procedure: Patient was brought to the operating room and was placed in a pr one jackknife position after general anesthesia with endotracheal intubation. Preoperative antibiotics were given. The area was prepped and draped in the usual sterile fashion. The anus showed anal stenosis that will allow the smallest fergusson anoscopy only. There is rep lacement of scar at the anal verge with loss of anoderm of the left side as the right side f lap has already been performed . A left sided island flap is to be performed and this will l ikely be wide enough for a satisfactory function. I marked the area that would be appropria te for an advancement island flap and then using the Bovie I divided the scar tissue from th e anal verge and that helped relax the anus and subsequently allowed the medium Bryant ret ractor to be passed in and after I excised the scar and I mobilized the flap I divided it aw ay from the ischiorectal fat and after the flap became 90 degrees vertical to the anus and i t would drop into the anus without tension this was deemed ready for approximation and I sut ured it to the rectal mucosa with interrupted 3-0 Vicryl and left the wound in the ischiorec rani fossa open. During the case I noted a small very brief quick flare of gas that concerned me for potential burn to the rectal and sigmoid mucosa thus after the conclusion of the destini e I performed a flexible sigmoidoscopy and the mucosa was normal and intact to the extent ex amined which was sigmoid, rectum and anus. This was a very unusual occurrence especially bashir t he had done a complete bowel prep. Local anesthesia was infiltrated. Bacitracin dressing was applied and gauze dressing was a lso applied. The patient tolerated the procedure well. Condition: Stable Osei Boyer MD 12/08/2019 emple [facility] Not e - Kellie Ayala RN - 07/14/2019 10:32 AM PSTReceived MARS and allergies via fax. Bettina davis in [place]. documented in this encounter Plan of Treatment +--------+---------+ + + + | Date | Type | Specialty | Care Team | Description | +--------+---------+ + + + | 12/27/ | Office | General Surgery | Adithya, | | | 2019 | Visit | | [address] | | | | | | [address] | | | | | | [place] [address] | | | | | | [phone] | | | | | | | | +--------+---------+ + + + + + +--------+ + + | Name | Type | Priori | Associated Diagnoses | Order Schedule | | | | ty | | | + + +--------+ + + | Surgical Pathology | Pathology | Routin | Anal stenosis | Release Upon | | Exam | and | e | | Ordering for 1 | | | Cytology | | | Occurrences starting | | | | | | 12/08/2019 | + + +--------+ + + documented as of this encounter Procedures + +--------+ + + + | [...] section. | + +--------+ + + + documented in this encounter Results Coronavirus (COVID-19) NAAT (12/08/2019 8:21 AM PDT) + + + + + + | Component | Value | Ref Range | Performed | Pathologist | | | | | At | Signature | + + + + + + | SARS-CoV-2, | NEGATIVEComment: This | NEG | [facility] | | | NAAT | test was [...] | | | | | performed at [facility] [place] | | | | | [address];[place] | | | | | | [address] | | | | + + + + + + + + | Specimen | + + | Tissue - Entire | | nasopharynx (body | | structure) | + + + + + + + | Performing | Address | City/State/Zipcode | Phone Number | | Organization | | | | + + + + + | [facility] | [address] | [place] [address] | [phone] | + + + + + documented in this encounter Visit Diagnoses + + | Diagnosis | + + | Anal stenosis - Primary Stenosis of rectum and anus | + + documented in this encounter Admitting Diagnoses + + | Diagnosis | + + | Anal stenosis Stenosis of rectum and anus | + + documented in this encounter Administered Medications + +--------+---------+------+------+------+ | Medication Order | MAR | Action | Dose | Rate | Site | | | Action | Date | | | | + +--------+---------+------+------+------+ + +---+ | acetaminophen (TYLENOL) 160 | | | mg/5 mL liquid 1,000 mg 1,000 | | | mg, Oral, ONCE PRN, Pain, | | | Starting Wed12/08/19 at 1210, For | | | 1 dose, One time if none given | | | within 4 hours., Recovery/Phase I | | + +---+ | | | + +---+ | acetaminophen (TYLENOL) | | | suppository 650 mg 650 mg, | | | Rectal, ONCE PRN, Pain, Starting | | | Wed12/08/19 at 1210, For 1 dose, | | | One time if unable to take oral | | | and none given within 4 hours., | | | Recovery/Phase I | | + +---+ | | | + +---+ | acetaminophen (TYLENOL) tablet | | | 1,000 mg 1,000 mg, Oral, ONCE | | | PRN, Pain, Starting Wed12/08/19 | | | at 1210, For 1 dose, One time if | | | none given within 4 hours., | | | Recovery/Phase I | | + +---+ | | | + +---+ | albuterol 2.5 mg/3 mL nebulizer | | | solution 2.5 mg 2.5 mg, | | | Nebulization, ONCE PRN, Wheezing, | | | Starting Wed12/08/19 at 1210, | | | For 1 dose, Notify anesthesia if | | | patient is wheezing and does not | | | have a history of asthma or COPD | | | or current smoking., | | | Recovery/Phase I | | + +---+ | | | + +---+ + + + +---+---+---+ | balanced electrolytes in water | Continue | 12/08/19 | | | | | (PLASMALYTE-148/NORMOSOL-R) | d by | 20 10:52 | | | | | infusion at 100 mL/hr, | Anesthes | AM PDT | | | | | Intravenous, CONTINUOUS, Starting | ia | | | | | | Wed12/08/19 at 0930, Intra-op | | | | | | + + + +---+---+---+ +---------+ +---+-------+---+ | New Bag | 12/08/19 | | 100 | | | | 20 9:13 | | mL/hr | | | | AM PDT | | | | +---------+ +---+-------+---+ + +---+ | | | + +---+ | dextrose 50% injection 12.5-25 | | | g 12.5-25 g, Intravenous, EVERY | | | 15 MIN PRN, Low Blood Sugar, For | | | hypoglycemia. Give 12.5g (25ml) | | | IV if blood glucose 50-69 | | | mg/dL. Give 25g (50ml) IV if | | | blood glucose < 50, Starting Fri | | | 12/08/19 at 1210, Give over 2 min. | | | Repeat in 15 min if blood | | | glucose remains < 70 mg/dL. | | | Repeat blood glucose in 30 min | | | once blood glucose > 70., | | | Recovery/Phase I | | + +---+ | | | + +---+ + +-------+ +--------+---+---+ | fentaNYL (PF) injection 25-50 | Given | 12/08/19 | 50 mcg | | | | mcg 25-50 mcg, Intravenous, | | 20 1:05 | | | | | EVERY 5 MIN PRN, Pain, Initial | | PM PDT | | | | | postop medication for URGENT PAIN | | | | | | | OR ESCALATING PAIN, Starting Fri | | | | | | | 12/08/19 at 1210, For 4 doses, | | | | | | | First dose must be lowest dose. | | | | | | | Use Pasero Sedation Scale. | | | | | | | [Opioid tolerant = One week or | | | | | | | longer, [id number]-[id number]-pbhpm use of | | | | | | | at least the following DAILY | | | | | | | dose: 60mg oral morphine, 60mg | | | | | | | oral hydrocodone, 30mg oral | | | | | | | oxycodone, 8mg oral | | | | | | | hydromorphone, fentanyl patch | | | | | | | 25mcg/hr, or equivalent dose of | | | | | | | another opioid], Recovery/Phase I | | | | | | + +-------+ +--------+---+---+ +-------+ +--------+---+---+ | Given | 12/08/19 | 25 mcg | | | | | 20 12:55 | | | | | | PM PDT | | | | +-------+ +--------+---+---+ +---+---+ | | | +---+---+ + +-------+ +--------+---+---+ | HYDROmorphone (DILAUDID) | Given | 12/08/19 | 0.2 mg | | | | injection 0.2-0.6 mg 0.2-0.6 mg, | | 20 1:00 | | | | | Intravenous, EVERY 5 MIN PRN, | | PM PDT | | | | | Pain, Starting Wed12/08/19 at | | | | | | | 1210, First dose must be lowest | | | | | | | dose, can increase subsequent | | | | | | | doses by 0.2mg within dosing | | | | | | | range. If patient meets opioid | | | | | | | tolerant definition, can start | | | | | | | with 0.4mg dose. [Maximum total | | | | | | | PACU dose 2 mg] Use Pasero | | | | | | | Sedation Scale. [Opioid tolerant | | | | | | | = One week or longer, | | | | | | | jrftxg-jxp-bttnl use of at least | | | | | | | the following DAILY dose: 60mg | | | | | | | oral morphine, 60mg oral | | | | | | | hydrocodone, 30mg oral oxycodone, | | | | | | | 8mg oral hydromorphone, fentanyl | | | | | | | patch 25mcg/hr, or equivalent | | | | | | | dose of another opioid], | | | | | | | Recovery/Phase I | | | | | | + +-------+ +--------+---+---+ + +---+ | | | + +---+ | labetalol (TRANDATE) 5 mg/mL | | | injection 5 mg 5 mg, | | | Intravenous, EVERY 5 MIN PRN, For | | | SBP > 180, DBP > 100, Starting | | | 12/08/19 at 1210, For 4 doses, | | | Hold if HR < 60. Maximum total | | | dose 300mg. Notify anesthesia if | | | patient requires more than 50mg., | | | Recovery/Phase I | | + +---+ | | | + +---+ | meperidine (DEMEROL) injection | | | 12.5 mg 12.5 mg, Intravenous, | | | PRN, Shivering, Starting Fri | | | 12/08/19 at 1210, For 2 doses, May | | | Repeat once in 5 min., | | | Recovery/Phase I | | + +---+ | | | + +---+ | midazolam (VERSED) 1 mg/mL | | | injection 0.5-2 mg 0.5-2 mg, | | | Intravenous, EVERY 5 MIN PRN, | | | Anxiety, or agitation, Starting | | | 12/08/19 at 1210, Maximum | | | total dose 2 mg., Recovery/Phase | | | I | | + +---+ | | | + +---+ | ondansetron (ZOFRAN) injection | | | 4 mg 4 mg, Intravenous, EVERY 4 | | | HOURS PRN, Nausea, Vomiting, | | | Starting 12/08/19 at 1210, | | | Recovery/Phase I | | + +---+ | | | + +---+ | oxyCODONE (ROXICODONE) tablet 5 | | | mg 5 mg, Oral, ONCE PRN, Pain, | | | Starting Wed12/08/19 at 1210, For | | | 1 dose, If able to take oral | | | medication., Recovery/Phase I | | + +---+ | | | + +---+ + +-------+ + +---+---+ | oxyCODONE-acetaminophen | Given | 12/08/19 | 1 tablet | | | | (PERCOCET) 5-325 mg per tablet 1 | | 20 1:28 | | | | | tablet 1 tablet, Oral, EVERY 6 | | PM PDT | | | | | HOURS PRN, Pain, Starting Fri | | | | | | | 12/08/19 at 1315, Post-op/Phase II | | | | | | + +-------+ + +---+---+ + +---+ | | | + +---+ | promethazine (PHENERGAN) (IM | | | ONLY) injection 6.25 mg 6.25 mg, | | | Intramuscular, EVERY 15 MIN PRN, | | | Nausea, Vomiting, Starting Fri | | | 12/08/19 at 1210, For 4 doses, | | | Vesicant. Give by deep IM | | | injection into a large muscle. | | | Use ondansetron first if both are | | | ordered., Recovery/Phase I | | + +---+ | | | + +---+ documented in this encounter
--- OUTSIDE RECORDS SUMMARY | ~2019-12-09 | XMS | Encounter Summary ---
Demographics + + + | Address | [address] | | | [place] [address] | + + + | Home Phone | | + + + | Preferred Language | Unknown | + + + | Marital Status | Single | + + + | Quaker Affiliation | Unknown | + + + | Race | Unknown | + + + | Ethnic Group | Unknown | + + + Author + + + | Author | [facility] | | | and [place] | + + + | Organization | [facility] | | | and [place] | + + + | Address | Unknown | + + + | Phone | Unavailable | + + + Support + + +---------+ + | Name | Relationship | Address | Phone | + + +---------+ + | [place] | ECON | Unknown | | | Corrections | | | | + + +---------+ + Care Team Providers + +------+ + | Care Treer Name | Role | Phone | + [...] + + | 12/05/ | Telephone | [facility] | Oesi Boyer, | Other (returning | | 2019 | | GENERAL SURGERY [address] | MD [address] | call ) | | | | [address] | [address] | | | | | [place], [place] | [place] [address] | | | | | [address] | [phone] | | | | | [phone] | | | +--------+ + + + [...] Miscellaneous Notes Telephone Encounter - Marcelle Shelton, High Heel Builder - 12/07/2019 4:17 PM PDTCalled an d spoke with Ashlyn at [facility]. And confirmed that patient will be there for surg skye tomorrow with Osei Boyer MD and review prep instructions of 2 fleets.Electronical ly signed by Marcelle Shelton High Heel Builder at 12/07/2019 4:18 PM PDTTelephone Encounter - Marcelle Shelton, High Heel Builder - 12/06/2019 4:39 PM PDTAttempted to contact Ashlyn, ronni murillo LVM for a return call in regards to patient prep for surgery on 12/08/19 with Osei Boyer MD. 4:3 9 PM PDTTelephone Encounter - Betsey Win - 12/06/2019 4:18 PM PDTKim- [place], i s calling regarding Other (returning call ) and would like a call back. Additional Call Details: Returning call from Marcelle regarding patients upcoming surgery on 12.08.19. Ashlyn can be reached at [phone]. If this is a symptom based call, was patient offered triage? Not Applicable If this is a symptom based call and you were unable to immediately transfer the call to a xochilt gore thermal spray operator was caller made aware that if [...] | | | | | [place] [address] | | | | | | [phone] | | | | | | | | +--------+---------+ + + + documented as of this encounter Visit Diagnoses Not on filedocumented in this encounter"
--- OUTSIDE RECORDS SUMMARY | ~2019-12-09 | XMS | Encounter Summary ---
Demographics + + + | Address | [address] | | | [place] [address] | + + + | Home Phone | | + + + | Preferred Language | Unknown | + + + | Marital Status | Single | + + + | Rastafarian Affiliation | Unknown | + + + [...] Phone | + + +---------+ + | [place] | ECON | Unknown | | | Corrections | | | | + + +---------+ + Care Team Providers + +------+ + | Care Home Sales Consultant Name | Role | Phone | + +------+ + | No, Physician | PCP | Unavailable | + +------+ + Encounter Details +--------+ + + + + | Date | Type | Department | Care Team | Description | +--------+ + + + + | 11/16/ | Preadmit | [facility] | Osei Boyer, | | | 2019 | Visit | [facility] | [address] | | | | | CLINIC [address] | [address] | | | | | [address] [place], [place] | [place] [address] | | | | | [address] | [phone] | | | | | [phone] | | | +--------+ + + + [...] | | | | | [place] [address] | | | | | | [phone] | | | | | | | | +--------+---------+ + + + documented as of this encounter Visit Diagnoses Not on filedocumented in this encounter"
--- OUTSIDE RECORDS SUMMARY | ~2019-12-09 | XMS | Clinical Summary ---
Demographics + + + | Address | [address] | | | [place] [address] | + + + | Home Phone | | + + + | Preferred Language | Unknown | + + + | Marital Status | Single | + + + | Taoist Affiliation | Unknown | + + + | Race | Unknown | + + + | Ethnic Group | Unknown | + + + Author + + + | Author | [facility] | | | and [place] | + + + | Organization | [facility] | | | and [place] | + + + | Address | Unknown | + + + | Phone | Unavailable | + + + Support + + +---------+ + | Name | Relationship | Address | Phone | + + +---------+ + | [place] | ECON | Unknown | | | Corrections | | | | + + +---------+ + Care Team Providers + +------+ + | Care Paediatric Surgeon Name | Role | Phone | + [...] Overview: Added automatically from request for surgery [id number] | + + Encounters +--------+ + + + + | Date | Type | Specialty | Care Team | Description | +--------+ + + + + | 12/07/ | Anesthesia | | Talib Sotelo, | | | 2019 | Event | | 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 | | +--------+ + + + + | 12/07/ | Surgery | | sOei Boyer, | EXAM UNDER | 2019 | [...] | | | | | | [place] [address] | | | | | | [phone] | | | | | | | [...] SARS-CoV-2, | NEGATIVEComment: This | NEG | [facility] | | | NAAT | [...] | | | | | performed at [facility] [place] | | | | | | [address];[place], [place] | | | | | | [address] | | | | + + + + + + + + | Specimen | + + | Tissue - Entire | | nasopharynx (body | | structure) | + + + + + + + | Performing | Address | City/State/Zipcode | Phone Number | | Organization | | | | + + + + + | [facility] | [address] | [place] [address] | [phone] | + + + + + from [...] +--------+-------+---------+--------+ | DEPARTMENT OF | CORRCT | [id number] | 05/17/19 | | | Indemn | [...] Corpor | Other | 05/17/ | | [address] | | [employer] | ate | | 1903 | [phone] | [address] [place] | | | | | | [address] (Home) | [address] | + +--------+ +--------+ + + | Zack Wei | Person | Self | [birth year] | [address] | | | al/Fam | | 1991 | [phone] | [address] [place] | | | gael | | | 1 (Home) | [address] | + +--------+ +--------+ + + Advance Directives + + + + + | Type | Date Recorded | Patient | Explanation | | | | 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
--- OUTSIDE RECORDS SUMMARY | ~2019-12-09 | XMS | Encounter Summary ---
Demographics + + + | Address | [address] | | | [place] [address] | + + + | Home Phone | | + + + | Preferred Language | Unknown | + + + | Marital Status | Single | + + + | Samaritan Affiliation | Unknown | + + + | Race | Unknown | + + + | Ethnic Group | Unknown | + + + Author + + + | Author | [facility] | | | and [place] | + + + | Organization | [facility] | | | and [place] | + + + | Address | Unknown | + + + | Phone | Unavailable | + + + Support + + +---------+ + | Name | Relationship | Address | Phone | + + +---------+ + | [place] | ECON | Unknown | | | Corrections | | | | + + +---------+ + Care Team Providers + +------+ + | Care Outdoor Adventure Guides Name | Role | Phone | + [...] + + | 05/19/ | Telephone | [facility] | Osei Boyer, | Follow-up | | 2019 | | GENERAL SURGERY [address] | MD [address] | | | | | [address] | [address] | | | | | [place], [place] | [place] [address] | | | | | [address] | [phone] | | | | | [phone] | | | +--------+ + + + [...] [place] I - 06/15/2019 8:53 AM PSTKim- [place], is calling again for Follow-up and would like a call back. Additional Call Details: Reschedule 06/20 appointment due to transportation conflict. Call back at: [phone] elephone Encounter - Manuela Bates Tabitha - 05/26/2019 11:46 AM PSTKim, is calling again for Follow-up and would like a call back. Additional Call Details: Waiting on a call back. Please return call to: [phone] elephone Encounter - Nancy Starkey - 05/19/2019 11:11 AM PSTLeft voicemail for Ashlyn to call back and schedule f ollow up for inmate to see Ralph Haji.Electronically signed by Nancy Yan at 05/19 11:11 AM PSTTelephone Encounter - Robert Quinones - 05/19/2019 10:03 AM PSTKim, is calling regarding Follow-up and would like a call back. Additional Call Details: Ashlyn, from [facility], Calling to [facility] e Follow Up Appointment. Ashlyn can be reached at [phone] If this is a symptom based call, was patient offered triage? Not Applicable If this is a symptom based call and you were unable to immediately transfer the call to a xochilt gore dipper machine operator was caller made aware that if [...] | | | | | [place] [address] | | | | | | [phone] | | | | | | | | +--------+---------+ + + + documented as of this encounter Visit Diagnoses Not on filedocumented in this encounter"
--- OUTSIDE RECORDS SUMMARY | ~2019-12-09 | XMS | Encounter Summary ---
Demographics + + + | Address | [address] | | | [place] [address] | + + + | Home Phone | | + + + | Preferred Language | Unknown | + + + | Marital Status | Single | + + + | Mandaeism Affiliation | Unknown | + + + | Race | Unknown | + + + | Ethnic Group | Unknown | + + + Author + + + | Author | [facility] | | | and [place] | + + + | Organization | [facility] | | | and [place] | + + + | Address | Unknown | + + + | Phone | Unavailable | + + + Support + + +---------+ + | Name | Relationship | Address | Phone | + + +---------+ + | [place] | ECON | Unknown | | | Corrections | | | | + + +---------+ + Care Team Providers + +------+ + | Care Nurse Obgyn Name | Role | Phone | + +------+ + | No, Physician | PCP | Unavailable | + +------+ + Encounter Details +--------+ + + + + | Date | Type | Department | Care Team | Description | +--------+ + + + + | 12/07/ | Anesthesia | [facility] | Talib Sotelo, | | | 2020 | [facility] | MULE TENDER [address] | | | | | [address] | [place] [address] | | | | | [address] | [phone] | | | | | [place], [place] | | | | | | [address] | | | | | | [phone] | | | +--------+ + + + + Anesthesia Record + + + + + | Procedure Name | Responsible | Anesthesia Start | Anesthesia Stop Time | | | Anesthesiologist | Time | | + + + + + | EXAM UNDER | Talib Sotelo, | 12/08/19 1052 | 12/08/19 1237 | | ANESTHESIA RECTAL; | MULE TENDER | | | | anal flap (N/A [...] +----+---+ + + | | 1 | [place] | | | | 1 | 43-degrees [...] | | | procedure documentation); Mask | MULE TENDER | MULE TENDER | | | Ventilation: EZ; Airway Grade: [...] EVALUATION Zack Wei 29 y.o. male 1990 [id number] Procedure(s) EXAM UNDER ANESTHESIA RECTAL; anal flap [...] Talib Sotelo CRNA 12/08/2019 12:38 PM PDT [facility] Talib Sotelo CRNA at 020 [...] EVALUATION Zack Wei 29 y.o. male 1990 [id number] Procedure(s): EXAM UNDER ANESTHESIA RECTAL; dermal flap [...] NOTE Zack Wei 29 y.o. male 1990 [id number] EXAM UNDER ANESTHESIA RECTAL; anal flap (N/A [...] were reviewed with the receiving team. Talib Sotelo CRNA 12/08/2019 12:37 PM PDT [facility] by Talib Sotelo CRNA at 020 [...] 101 | | | | | | [facility] [address] | | | | | | [phone] | | | | | | | [...] Performed At | + + + | Talbi Sotelo CRNA 12/08/2019 11:21 AM Anesthesia Airway [...]
--- OUTSIDE RECORDS SUMMARY | ~2019-12-09 | XMS | Encounter Summary ---
Demographics + + + | Address | [address] | | | [place] [address] | + + + | Home Phone | | + + + | Preferred Language | Unknown | + + + | Marital Status | Single | + + + | Episcopal Affiliation | Unknown | + + + [...] Phone | + + +---------+ + | [place] | ECON | Unknown | | | Corrections | | | | + + +---------+ + Care Team Providers + +------+ + | Care Blue Line Operator Name | Role | Phone | + +------+ + PCP | Unavailable | + +------+ + Encounter Details +--------+ + + + + | Date | Type | Department | Care Team | Description | +--------+ + + + + | 12/14/ | Hospital | [facility] | Osei Boyer, | Anal stenosis | | 2018 | Encounter | [facility] | [address] | | | | | [address] | [address] | | | | | [place], [place] | [place] [address] | | | | | [address] | [phone] | | | | | [phone] | | | +--------+ + + + [...] | 0 | 12/14/19 | | | [id number] | physicians | mL | | 18 [...] Note by Ellen Gonzalez RN at 12/14/17 3006 Author: Ellen Gonzalez RN Service: General Surgery Author Type: Registered Nurse Filed: 12/14/17 4999 Date of Service: 12/14/171654 Status: Signed Ethylbenzene Cracking Supervisor: Ellen Gonzalez RN (Registered Nurse) Pt ambulated [...] 131 Date of Service: 12/14/171315 Status: Signed Ethylbenzene Cracking Supervisor: Osei Boyer MD (Physician) [facility] Service: Colon & Rectal Surgery Note Subjective: [...] Date of Service: 12/09/17 1603 Status: Signed Ethylbenzene Cracking Supervisor: Dorita Walton RN (Registered Nurse) Called [facility] to get mrsa nasal swab results. She states she will fax resu lts now. Received result and hard copy in chart available for review onver geovany Transaction, Provider Unknown - 11/29/2017 3:11 PM PDT Pre-Procedure Instructions by Dorita Walton RN at 11/29/17 1511 Author: Dorita Walton RN Service: (none) Author Type: Registered Nurse Filed: 11/29/17 1512 Date of Service: 11/29/17 1511 Status: Signed Ethylbenzene Cracking Supervisor: Dorita Walton RN (Registered Nurse) Called and left message for June at [facility]. Requested she send pt MAR and allerg y list and send MRSA nasal swab result if she has it. Requested call back onver geovany Transaction, Provider Unknown - 11/02/2017 4:25 PM PDT Pre-Procedure Instructions by Dorita Walton RN at 11/02/17 1625 Author: Dorita Walton RN Service: (none) Author Type: Registered Nurse Filed: 11/02/17 1627 Date of Service: 11/02/17 1625 Status: Signed Ethylbenzene Cracking Supervisor: Dorita Walton RN (Registered Nurse) Pre op instructions and chlorhexadine wash instructions faxed to [facility] where pt. Resides along with request for patients MAR and allergy list and to ob tain MRSA PCR nasal swab 2 weeks prior to OR date docume nted in this encounter Miscellaneous Notes Op Note - Osei Boyer MD - 12/14/2017 3:13 PM PDTFormatting of this note might be d ifferent from the original. Op Note by Osei Boyer MD at 12/14/17 9158 Author: Osei Boyer MD Service: General Surgery Author Type: Physician Filed: 12/14/17 2174 Date of Service: 12/14/17 1517 Status: Signed Ethylbenzene Cracking Supervisor: Osei Boyer MD (Physician) Related Notes: Original Note by Osei Boyer MD (Physician) filed at 12/14/17 7811 [facility] Service: Colon & Rectal Surgery Operative Note Pre-operative Diagnosis: Anal stenosis, S/P hemorrhoidectomy. 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
--- OUTSIDE RECORDS SUMMARY | ~2019-12-09 | XMS | Encounter Summary ---
Demographics + + + | Address | [address] | | | [place] [address] | + + + | Home Phone | | + + + | Preferred Language | Unknown | + + + | Marital Status | Single | + + + | Sikhism Affiliation | Unknown | + + + | Race | Unknown | + + + | Ethnic Group | Unknown | + + + Author + + + | Author | [facility] | | | and [place] | + + + | Organization | [facility] | | | and [place] | + + + | Address | Unknown | + + + | Phone | Unavailable | + + + Support + + +---------+ + | Name | Relationship | Address | Phone | + + +---------+ + | [place] | ECON | Unknown | | | Corrections | | | | + + +---------+ + Care Team Providers + +------+ + | Care Photograph Printer Name | Role | Phone | + [...] + + | 12/07/ | Surgery | [facility] | Osei Boyer, | EXAM UNDER | | 2019 | | [facility] | MD [address] | ANESTHESIA RECTAL; | | | | OPER[address] | [address] | anal flap | | | | [address] | [place] [address] | | | | | [place], [place] | [phone] | | | | | [address] | | | | | | [phone] | | | +--------+---------+ + + + [...] Other supplements that can be taken include Toolroom Attendant, Benefiber, Konsyl, or Citrucel. Continue to take [...] call us immediately or go to the [facility] Emergency R o[facility]. After Your Surgery You [...] strain that is spread mainly from pers qj-rx-xofoat through respiratory droplets when an infected person [...] are not available, use an alcohol-based hand principal embedded software engineer with at least 60 % alcohol covering [...] and need to call 911, notify the long distance billing operator that you have or think you [...] COVID-19 symptoms, residents in nursing facilities or halfway communities or home health, or those who [...] or preparing your food. ? Use hand principal embedded software engineer if soap and water are not available. [...] with soap and water or in the powertrain engineer/washer. ? Call ahead before visiting your doctor. [...] disposal of unused medications, please visit: http://www.takebackyourmeds.org/, https://apps.Flumes.Drill Cycle.gov/pubdispsea [facility]/spring/main?execution=e1s3 ? Activities of daily living (ADL) are routine activities people do every day without matthew tance. Non-pharmacological interventions can be useful and incorporated to help with activit ies of daily living. These include, but are not limited to: Repositioning, cold/warm bruce ses, massage, decreasing environmental stimulation (decrease lighting, decrease noise), musi c, aromatherapy. FEBRUARY 2018 | [facility] Pub [phone] Location Address Phone # Take Back Hours Accepts Does NOT Accept [facility] Department [address] [place] [address] [phone] Lobby hours: M-F: 8am-5pm Sat-Sun: See their Facebook page for dates (every few weeks) - Pills: tablets, capsules (in cluding controlled substances) - Liquids - Topical lotions, gels, creams, ointments - Sharps, syringes (including insulin) - Inhalers [place] [employer] [address] [place] [address] [phone] Lobby hours: M-F: 8am-12pm, 1pm-5pm (closed 12-1pm) Sat-Sun: CLOSED - Pills: tablets, capsules (including controlled substances) - Liquids - Topical lotions, gels, creams, ointments - Sharps, syringes (including insulin) - Inhalers [place] [employer] [address] [place] [address] [phone] Lobby hours: M-F: 8:30am-4:30pm Sat-Sun: CLOSED - Pills: tablets, capsules (including controlled substances) - Patches - Liquids - Topical lotions, gels, creams, ointments - Sharps, syringes (including insulin) - Inhalers [place] [employer] [address] [place], [place] [address] [phone] Lobby hours: M-F: 8am-5pm Sat-Sun: CLOSED - Pills: tablets, capsules (including controlled substances) - Liquids - Topical lotions, gels, creams, ointments - Sharps, syringes (including insulin) - Inhalers [facility] ([id number]) [address] [place], [place] [id number] [phone] Pharmacy hours: M-F: 9am-9pm Sat: 8am-9pm Sun: 9am-9pm - Pills: tablets, capsules (including controlled substances) - Liquids - Topical lotions, gels, creams, ointments - Sharps, syringes (including insulin) - Inhalers [facility] (local branch of [facility]) [address] [place], [place] [address] [phone] Call to schedule crop picker; only for current residential customers - [...] in June [address] Brewster in [place]. Patient then developed significant s carring and [...] Osei Childress i, MD; Location: [facility]; Service: General; Laterality: N/A; [...] Osei Boyer MD - 12/08/2019 12:29 PM [facility] Service: Colon & Rectal Surgery Operative Note Pre-operative Diagnosis: Anal stenosis, secondary to a hemorrhoidectomy. S/P right lateral Island flap anoplasty. Patient wishes to have a larger orifice for better quality of life. Post-operative Diagnosis: Same Procedure(s): Left lateral island flap anoplasty and flexible sigmoidoscopy Surgeon: Osei Boyer MD Inker And Opaquer(s): none Anesthesia: General endotrachial anesthesia and Local [...] well. Condition: Stable Osei Boyer MD 12/08/2019 [facility] Kellie Manzanares RN - 07/14/2019 10:32 AM PSTReceived MARS and allergies via fax. Reconcil ed in [facility]. documented in this encounter Plan of Treatment +--------+---------+ + + + | Date | Type | Specialty | Care Team | Description | +--------+---------+ + + + | 12/27/ | Office | General Surgery | Adithya, | | | 2019 | Visit | | [address] | | | | | | [address] | | | | | | [place] [address] | | | | | | [phone] | | | | | | | [...] | | | | | performed at [facility];[address] | | | | | | [address];[place] | | | | | | [address] | | | | + + + + + + + + | Specimen | + + | Tissue - Entire | | nasopharynx (body | | structure) | + + + + + + + | Performing | Address | City/State/Zipcode | Phone Number | | Organization | | | | + + + + + | [facility] | [address] | [place] [address] | [phone] | + + + + + documented [...] | | | | | | longer, zciwxz-etc-qhwmy use of | | | | | [...] | | | | | | | kpudfe-hxl-owveh use of at least | | | [...]
--- OUTSIDE RECORDS SUMMARY | ~2019-12-09 | XMS | Encounter Summary ---
Demographics + + + | Address | [address] | | | [place] [address] | + + + | Home Phone | | + + + | Preferred Language | Unknown | + + + | Marital Status | Single | + + + | Sabianist Affiliation | Unknown | + + + | Race | Unknown | + + + | Ethnic Group | Unknown | + + + Author + + + | Author | [facility] | | | and [place] | + + + | Organization | [facility] | | | and [place] | + + + | Address | Unknown | + + + | Phone | Unavailable | + + + Support + + +---------+ + | Name | Relationship | Address | Phone | + + +---------+ + | [place] | ECON | Unknown | | | Corrections | | | | + + +---------+ + Care Team Providers + +------+ + | Care Anode Crew Supervisor Name | Role | Phone | + +------+ + | No, Physician | PCP | Unavailable | + +------+ + Encounter Details +--------+ + + + + | Date | Type | Department | Care Team | Description | +--------+ + + + + | 10/03/ | Preadmit | [facility] | Osei Boyer, | | | 2019 | Visit | [facility] | [address] | | | | | CLINIC [address] | [address] | | | | | [address] [place], [place] | [place] [address] | | | | | [address] | [phone] | | | | | [phone] | | | +--------+ + + + [...] | | | | | [place] [address] | | | | | | [phone] | | | | | | | | +--------+---------+ + + + documented as of this encounter Visit Diagnoses Not on filedocumented in this encounter"
--- OUTSIDE RECORDS SUMMARY | ~2019-12-09 | XMS | Encounter Summary ---
Demographics + + + | Address | [address] | | | [place] [address] | + + + | Home Phone | | + + + | Preferred Language | Unknown | + + + | Marital Status | Single | + + + | Worship Affiliation | Unknown | + + + | Race | Unknown | + + + | Ethnic Group | Unknown | + + + Author + + + | Author | [facility] | | | and [place] | + + + | Organization | [facility] | | | and [place] | + + + | Address | Unknown | + + + | Phone | Unavailable | + + + Support + + +---------+ + | Name | Relationship | Address | Phone | + + +---------+ + | [place] | ECON | Unknown | | | Corrections | | | | + + +---------+ + Care Team Providers + +------+ + | Care Retirement Benefits Specialist Name | Role | Phone | + [...] + + | 08/01/ | Telephone | [facility] | Osei Boyer, | Surgery Appointment | | 2019 | | GENERAL SURGERY [address] | [address] | (reschedule | | | | [address] | [address] | 08/11/19) | | | | [place], [place] | [place] [address] | | | | | [address] | [phone] | | | | | [phone] | | | +--------+ + + + [...] Booker - 08/02/2019 10:26 AM PDTSpoke with [place] [facility] and informed them that per [...] o ffice and reschedule surgery with Dr Boyer documented in this enc ounter Plan of [...] | | | | | [place] [address] | | | | | | [phone] | | | | | | | | +--------+---------+ + + + documented as of this encounter Visit Diagnoses Not on filedocumented in this encounter"
[~2019-12-09 18:18] MED LIST changes: +NORCO 5-325 TA1 EACH PO
--- OUTSIDE RECORDS SUMMARY | 2019-12-09 18:22 | XMS ---
PreManage Notification: MILAGRO MOSS Security Internet Sourcer Events No recent Security Events currently on file CRITERIA MET - [facility] - 2 Visits in 30 Days CARE PROVIDERS There are no care providers on record at this time. Piedad has no Care Guidelines for this patient. Ed[facility] (12 MO.) [facility] NOTE: Visits indicate total known visits. ED/UCC VISIT TRACKING (12 MO.) 12/09/2019 18:[facility] COMPLAINT: - RECTAL BLEEDING 12/08/2019 23:17 [facility] TYPE: Emergency COMPLAINT: - POST OP BLEEDING INPATIENT VISIT TRACKING (12 MO.) No inpatient visits to display in this time frame [id number]
[2019-12-09] MEDS ORDERED: NORCO 5-325 TA1 EACH PO (18:37)
== END 2019-12-09 21:34 | disposition short-term general hospital (02) ==
LOC: ED 18:18
DX: L76.22 Postprocedural hemorrhage of skin and subcutaneous tissue following other procedure (principal)
CPT/HCPCS: 80053; 85025; 96361; 96374; 96375; 96376; 99284-25; J2270; J2405; J7030